=== PATIENT | male | born 1960 | race Caucasian/White ===

== ENCOUNTER 2018-03-18 15:03 | Emergency (ER) | payer OTHER ==
[2018-03-18 15:12] VITALS: BP 122/59; PULSE 79; BMI 38.6
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
[2018-03-18 17:38] LABS: BASO % 1.1 % (0-2.0); EOS % 0.2 % (0-4.5); HEMATOCRIT 41.9 % (35.4-49); HEMOGLOBIN 14.5 GM/dL (11.7-16.9); LYMPH % 11.5 % (8-40); MCH 35.4 pg (25.7-33.7); MCHC 34.7 g/dl (32.0-35.9); MEAN CELL VOLUME 102.1 fl (80-96); MEAN PLT VOLUME 8.6 fl (7.5-11.1); NEUT % 68.2 % (42.8-82.8); PLATELET COUNT 184 K/MM3 (134-434); RDW 14.6 % (11.9-15.9); WHITE BLOOD COUNT 9.5 K/mm3 (4.0-10.0)
[2018-03-18 17:54] LABS: ALBUMIN 3.2 g/dl (3.4-5.0); ANION GAP 5 (8-16); BLOOD UREA NITROGEN 23 mg/dL (7-18); CALCIUM 8.3 mg/dL (8.5-10.1); CHLORIDE 100 mmol/L (98-107); CO2 28 mmol/L (21-32); GLUCOSE,RANDOM 90 mg/dL (74-106); POTASSIUM 4.6 mmol/L (3.5-5.1); SGPT/ALT 18 U/L (12-78); SODIUM 133 mmol/L (136-145)
[2018-03-18 17:57] LABS: ALK PHOS 171 U/L (45-117); BILIRUBIN,TOTAL < 0.1 mg/dL (0.2-1.0); CREATININE 1.5 mg/dL (0.7-1.3); SGOT/AST 20 U/L (15-37); TOT PROT 8.6 g/dl (6.4-8.2)
[2018-03-18 18:03] LABS: URINE APPEARANCE TURBID; URINE BILIRUBIN NEGATIVE (<2.0 mg/dL); URINE BLOOD 2+ (NEGATIVE); URINE COLOR YELLOW; URINE GLUCOSE (UA) NEGATIVE (NEGATIVE); URINE KETONE NEGATIVE (NEGATIVE); URINE NITRITE NEGATIVE (NEGATIVE); URINE UROBILINOGEN NEGATIVE mg/dL (0.2-1.0)
[2018-03-18 18:04] LABS: URINE LEUK ESTERASE 2+ (NEGATIVE); URINE PROTEIN 2+ (NEGATIVE)
[2018-03-18 18:07] LABS: URINE HYALINE CAST 1 /lpf; URINE MUCUS RARE
[2018-03-18] MEDS ORDERED: CEFTRIAXONE 1 GM in DEXTROSE 5%-WATER - 100 ML IVPB ONE (18:23)
[2018-03-18] MEDS ORDERED: CEFTRIAXONE 1 GM/50 ML BAG ONE (18:40)
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
[2018-03-18] MEDS ORDERED: INSULIN REGULAR HUMAN 100 UNITS/ML *VIAL ONE ×2 (20:29→20:30)
[2018-03-18 20:35] VITALS: TEMP 98.1
== END 2018-03-18 20:58 | disposition home or self-care (01) ==
LOC: JER 15:03
DX: N39.0 Urinary tract infection, site not specified (principal); Q90.9 Down syndrome, unspecified; F78 Other intellectual disabilities; G40.909 Epilepsy, unspecified, not intractable, without status epilepticus
CPT/HCPCS: 36415; 71045-TC-FY; 80053; 81003; 81015; 85025; 87086; 96365; 99282-25

== ENCOUNTER 2018-03-27 13:25 | Inpatient (IN) | payer OTHER ==
--- NOTE | 2018-03-27 13:46 | PDOC ---
History of Present Illness - General History Source: Patient <Nancie Dowd - Last Filed: 03/27/18 17:22> - General History Source: Care Provider, EMS Exam Limitations: No Limitations - History of Present Illness Initial Comments: 03/27/18 17:59 The patient is a 57 year old male with a significant past medical history of Down's syndrome and HLD who was brought in by EMS to the emergency department for evaluation of fever. The staff of the [facility] reports the patient had a T -max of 101. The patient was recently admitted for decreased mental status and energy. The staff reports he was diagnosed for a UTI and had catheter recently removed. As per discharge form, the patient was on Macrobid. The staff reports a decrease in PO intake. As per staff, a growth was noticed on buttocks today, but was not there a few days ago. The patient denies chest pain, shortness of breath, headache, and dizziness. Denies fevers, chills, nausea, vomiting, diarrhea, and constipation. Allergies: NKA Social history: No reported cigarette, alcohol, or drug use. PCP: Dr. Reid Orosco ([phone]) <Roma Bishop - Last Filed: 03/27/18 19:07> - General Stated Complaint: FEVER Time Seen by Provider: 03/27/18 13:32 Past History - Past Medical History COPD: No Seizures: Yes - Suicide/Smoking/Psychosocial Hx Smoking Status: No Smoking History: Never smoked Number of Cigarettes Smoked Daily: 0 <NoemíNancie - Last Filed: 03/27/18 17:22> <Roma Bishop - Last Filed: 03/27/18 19:07> - Past Medical History Allergies/Adverse Reactions: Allergies Allergy/AdvReac Type Severity Reaction Status Date / Time No Known Allergies Allergy Verified 03/18/18 15:08 Home Medications: Ambulatory Orders Acetaminophen 325 mg PO QID PRN 03/27/18 Ascorbic Acid [C-500] 500 mg PO HS 03/27/18 Atorvastatin Ca [Lipitor] 20 mg PO HS 03/27/18 Calcium Carbonate/Vitamin D3 [Oyster Shell 500-Vit D3 200 Tb] 1 each PO BID Cyclobenzaprine HCl 5 mg PO HS 03/27/18 Dutasteride 0.5 mg PO 03/27/18 Emollient Combination No.71 [Lubriderm Advanced Therapy] 1 TP BID 03/27/18 Ketoconazole 2% Cream [Nizoral 2% Cream -] 1 applic TP BID 03/27/18 Mineral Oil 2 drop AU HS 03/27/18 Phenytoin Na Extended [Dilantin -] 30 mg PO BID 03/27/18 Phenytoin Na Extended [Dilantin -] 100 mg PO TID 03/27/18 Phisoderm 03/27/18 Tamsulosin HCl [Flomax] 0.4 mg PO BID 03/27/18 Tamsulosin HCl [Flomax] 0.4 mg PO HS 03/27/18 Tetrahydrozoline HCl [Visine] 2 drop OS BID 03/27/18 Tussin Liquid 10 ml PO Q6H PRN 03/27/18 Review of Systems - Review of Systems Able to Perform ROS?: Yes Comments:: GENERAL/CONSTITUTIONAL: (+)Fever. No chills. No weakness. HEAD, EYES, EARS, NOSE AND THROAT: No change in vision. No ear pain or discharge. No sore throat. CARDIOVASCULAR: No chest pain or shortness of breath. RESPIRATORY: No cough, wheezing, or hemoptysis. GASTROINTESTINAL: No nausea, vomiting, diarrhea or constipation. GENITOURINARY: No dysuria, frequency, or change in urination. MUSCULOSKELETAL: No joint or muscle swelling or pain. No neck or back pain. SKIN: No rash NEUROLOGIC: No headache, vertigo, loss of consciousness, or change in strength/ sensation. ENDOCRINE: No increased thirst. No abnormal weight change. HEMATOLOGIC/LYMPHATIC: No anemia, easy bleeding, or history of blood clots. ALLERGIC/IMMUNOLOGIC: No hives or skin allergy. <Roma Bishop - Last Filed: 03/27/18 19:07> *Physical Exam - Vital Signs Last Vital Signs Temp Pulse Resp BP Pulse Ox 100.8 F H 93 H 20 102/67 94 L 03/27/18 13:25 03/27/18 13:25 03/27/18 13:25 03/27/18 13:25 03/27/18 13:25 <Roma Bishop - Last Filed: 03/27/18 19:07> Heart Score/ECG Review #1 General ECG Interpretation: Sinus Rhythm, Normal Rate (92), Normal Intervals, No acute ischemic changes <LisamirellaNancie - Last Filed: 03/27/18 17:22> ED Treatment Course - LABORATORY CBC & Chemistry Diagram: 03/27/18 14:15 03/27/18 14:16 <Nancie Dowd - Last Filed: 03/27/18 17:22> - LABORATORY CBC & Chemistry Diagram: 03/27/18 14:15 03/27/18 14:16 - ADDITIONAL ORDERS Additional order review: Laboratory Results 03/27/18 03/27/18 03/27/18 16:00 14:16 14:15 Sodium 135 L Potassium 4.1 Chloride 101 Carbon Dioxide 28 Anion Gap 6 L BUN 22 H Creatinine 1.3 Creat Clearance w eGFR 56.90 Random Glucose 123 H Lactic Acid 1.2 Calcium 8.2 L Total Bilirubin 0.6 AST 26 ALT 18 Alkaline Phosphatase 94 H Total Protein 7.1 Albumin 2.4 L Urine Color Yellow Urine Appearance Clear Urine pH 5.5 Ur Specific [place] 1.015 Urine Protein 1+ H Urine Glucose (UA) Negative Urine Ketones Trace Urine Blood 2+ H Urine Nitrite Negative Urine Bilirubin Negative Urine Urobilinogen 0.2 Ur Leukocyte Esterase Trace H 03/27/18 14:15 RBC 3.84 L MCV 101.4 H MCHC 33.5 RDW 12.9 MPV 8.5 Neutrophils % 73.7 Lymphocytes % 11.9 Monocytes % 13.9 H Eosinophils % 0.0 Basophils % 0.5 - Medications Given in the ED: ED Medications Discontinued Medications Generic Name Dose Route Start Last Admin Trade Name Freq PRN Reason Stop Dose Admin Acetaminophen 1,000 mg 03/27/18 14:43 03/27/18 15:03 Ofirmev Injection - IVPB 03/27/18 14:44 1,000 mg ONCE ONE Administration Ceftriaxone Sodium 1,000 mg/ 50 mls @ 100 mls/hr 03/27/18 15:09 03/27/18 16: 10 Dextrose IVPB 03/27/18 15:38 100 mls/hr ONCE ONE Administration Sodium Chloride 1,000 ml 03/27/18 14:43 03/27/18 15:00 Normal Saline - IV 03/27/18 14:44 1,000 ml ONCE ONE Administration <Roma Bishop - Last Filed: 03/27/18 19:07> Medical Decision Making - Medical Decision Making 03/27/18 13:44 recent uti with fever, differential includes sepsis, bctermia. recurrent uti or pyelo plan las ivf, cultures ua. cxr will likley require admission. <Nancie Dowd - Last Filed: 03/27/18 17:22> - Medical Decision Making Consulted with Dr. Nails at 18:35. <Roma Bishop - Last Filed: 03/27/18 19:07> *DC/Admit/Observation/Transfer - Discharge Dispostion Admit: Yes <Nancie Dowd - Last Filed: 03/27/18 17:22> - Attestations Scribe Attestion: Documentation prepared by Roma Bishop, acting as medical art therapist for Nancie Dowd MD. <Roma Bishop - Last Filed: 03/27/18 19:07> Diagnosis at time of Disposition: Sepsis, UTI (urinary tract infection) - Discharge Dispostion Condition at time of disposition: Stable
[2018-03-27] MEDS ORDERED: SODIUM CHLORIDE 0.9% 1000 ML INFUS.BAG IV ONE (14:43)
[2018-03-27] MEDS ORDERED: ACETAMINOPHEN 1000 MG/100 ML VIAL (NON FORMULARY) IVPB ONE (14:43)
[2018-03-27] MEDS ORDERED: ACETAMINOPHEN INJECTION 100 ML IVPB ONE (14:57)
[2018-03-27 15:05] LABS: ALBUMIN 2.4 g/dl (3.5-5.0); ALK PHOS 94 U/L (32-92); ANION GAP 6 (8-16); BLOOD UREA NITROGEN 22 mg/dl (7-18); CALCIUM 8.2 mg/dl (8.4-10.2); CHLORIDE 101 mmol/L (98-107); CO2 28 mmol/L (22-28); CREATININE 1.3 mg/dl (0.6-1.3); GLUCOSE,RANDOM 123 mg/dl (74-106); POTASSIUM 4.1 mmol/L (3.5-5.1); SGOT/AST 26 U/L (10-42); SGPT/ALT 18 U/L (10-40); SODIUM 135 mmol/L (136-145); TOT PROT 7.1 g/dl (6.4-8.3)
[2018-03-27] MEDS ORDERED: CEFTRIAXONE 1,000 MG in DEXTROSE 5%-WATER - 50 ML IVPB ONE (15:09)
[2018-03-27 15:15] LABS: BASO % 0.5 % (0-2.0); PLATELET COUNT 171 K/MM3 (134-434)
[2018-03-27] MEDS ORDERED: cefTRIAXone SODIUM 1 GM VIAL ONE (15:20)
[2018-03-27 15:32] LABS: HEMOGLOBIN 13.1 GM/dl (11.7-16.9); LYMPH % 11.9 % (8-40); MCHC 33.5 g/dl (32.0-35.9); MEAN CELL VOLUME 101.4 fl (80-96); MEAN PLT VOLUME 8.5 fl (7.5-11.1); MONO % 13.9 % (3.8-10.2); NEUT % 73.7 % (42.8-82.8); RBC 3.84 M/mm3 (4.00-5.60); RDW 12.9 % (11.9-15.9); WHITE BLOOD COUNT 9.6 K/mm3 (4.0-10.8)
[2018-03-27 15:38] LABS: BILIRUBIN,TOTAL 0.6 mg/dl (0.2-1.0)
[2018-03-27 16:15] LABS: PH,URINE 5.5 (4.5-8); URINE APPEARANCE Clear; URINE BILIRUBIN Negative (NEGATIVE); URINE COLOR YELLOW; URINE GLUCOSE (UA) Negative (NEGATIVE); URINE KETONE Trace (NEGATIVE); URINE LEUK ESTERASE TRACE (NEGATIVE); URINE NITRITE Negative (NEGATIVE); URINE PROTEIN 1+ (NEGATIVE); URINE UROBILINOGEN 0.2 (0.2-1.0)
[2018-03-27 19:15] LABS: URINE BACTERIA MODERATE /hpf (NEGATIVE); URINE RBC 15-25 /hpf (0-3); URINE WBC 20-30 (0-2)
[2018-03-27] MEDS ORDERED: VANCOMYCIN 1 GRAM (PRE-DOCKED) 1,000 MG/250 ML BAG IVPB ONE (19:16)
[2018-03-27] MEDS: SODIUM CHLORIDE 1,000 ML IV SCH (19:48)
--- NOTE | 2018-03-27 21:28 | HP ---
CHIEF COMPLAINT:decline on status, +uti PCP: Dr. Elizabeth Orosco HISTORY OF PRESENT ILLNESS: This 57 yr old male with Down's Syndrome comes from a home with [facility] who tells us that Waqar has a decline on status a month ago; found to have UTI, urinary retention with need for a hickman now removed, completed macrobid. Over the week at home, he has declined on his abiltiy to ambulate, speak and hand dexterity as well as showing a UTI once again. He had a fever of 101 yesterday. ER course was notable for: (1) finding of UTI on vanco (2) (3) PAST MEDICAL HISTORY: Down's syndrome, uti PAST SURGICAL HISTORY: Social History: none Smoking: Alcohol: Drugs: Family History: Allergies No Known Allergies Allergy (Verified 03/18/18 15:08) HOME MEDICATIONS: Home Medications Medication Instructions Recorded Acetaminophen 325 mg PO QID PRN 03/27/18 Ascorbic Acid [C-500] 500 mg PO HS 03/27/18 Atorvastatin Ca [Lipitor] 20 mg PO HS 03/27/18 Calcium Carbonate/Vitamin D3 1 each PO BID 03/27/18 [Oyster Shell 500-Vit D3 200 Tb] Cyclobenzaprine HCl 5 mg PO HS 03/27/18 Dutasteride 0.5 mg PO HS 03/27/18 Emollient Combination No.71 1 TP BID 03/27/18 [Lubriderm Advanced Therapy] Ketoconazole 2% Cream [Nizoral 2% 1 applic TP BID 03/27/18 Cream -] Mineral Oil 2 drop AU HS 03/27/18 Phenytoin Na Extended [Dilantin -] 30 mg PO BID 03/27/18 Phenytoin Na Extended [Dilantin -] 100 mg PO TID 03/27/18 Phisoderm 03/27/18 Tamsulosin HCl [Flomax] 0.4 mg PO BID 03/27/18 Tamsulosin HCl [Flomax] 0.4 mg PO HS 03/27/18 Tetrahydrozoline HCl [Visine] 2 drop OS BID 03/27/18 Tussin Liquid 10 ml PO Q6H PRN 03/27/18 REVIEW OF SYSTEMS Unable to retrieve accept what the [facility] at bedside can provide PHYSICAL EXAMINATION Vital Signs - 24 hr 04/26/18 04/26/18 04/26/18 13:25 18:00 18:13 Temperature 100.8 F H 99.6 F 99.4 F Pulse Rate 93 H 81 Pulse Rate [ 88 Left Apical] Respiratory 20 16 16 Rate Blood Pressure 102/67 128/74 Blood Pressure 129/70 [Right Arm] O2 Sat by Pulse 94 L 95 Oximetry (%) 03/27/18 03/27/18 19:19 20:14 Temperature Pulse Rate Pulse Rate [ Left Apical] Respiratory 16 16 Rate Blood Pressure Blood Pressure [Right Arm] O2 Sat by Pulse 95 95 Oximetry (%) GENERAL: Awake, alert, minimal speech HEAD: Normal with no signs of trauma. LUNGS: Breath sounds equal, clear to auscultation bilaterally. HEART: Regular rate and rhythm, normal S1 and S2 without murmur, rub or gallop. ABDOMEN: Soft, nontender, not distended, MUSCULOSKELETAL: difficulty to assess in bed needs PT UPPER EXTREMITIES: 2+ pulses, warm, well-perfused. No cyanosis. LOWER EXTREMITIES: 2+ pulses, warm, well-perfused. NEUROLOGICAL: Down's syndrome PSYCHIATRIC: Cooperative. Good eye contact. Appropriate mood and affect. SKIN: Warm, dry, normal turgor, no rashes or lesions noted, normal capillary refill. Laboratory Results - last 24 hr 03/27/18 03/27/18 03/27/18 14:15 14:15 14:16 WBC 9.6 RBC 3.84 L Hgb 13.1 Hct 39.0 MCV 101.4 H MCH 34.0 H MCHC 33.5 RDW 12.9 Plt Count 171 MPV 8.5 Neutrophils % 73.7 Lymphocytes % 11.9 Monocytes % 13.9 H Eosinophils % 0.0 Basophils % 0.5 Sodium 135 L Potassium 4.1 Chloride 101 Carbon Dioxide 28 Anion Gap 6 L BUN 22 H Creatinine 1.3 Creat Clearance w eGFR 56.90 Random Glucose 123 H Lactic Acid 1.2 Calcium 8.2 L Total Bilirubin 0.6 AST 26 ALT 18 Alkaline Phosphatase 94 H Total Protein 7.1 Albumin 2.4 L Urine Color Urine Appearance Urine pH Ur Specific [place] Urine Protein Urine Glucose (UA) Urine Ketones Urine Blood Urine Nitrite Urine Bilirubin Urine Urobilinogen Ur Leukocyte Esterase Urine RBC Urine WBC Urine Bacteria 03/27/18 16:00 WBC RBC Hgb Hct MCV MCH MCHC RDW Plt Count MPV Neutrophils % Lymphocytes % Monocytes % Eosinophils % Basophils % Sodium Potassium Chloride Carbon Dioxide Anion Gap BUN Creatinine Creat Clearance w eGFR Random Glucose Lactic Acid Calcium Total Bilirubin AST ALT Alkaline Phosphatase Total Protein Albumin Urine Color Yellow Urine Appearance Clear Urine pH 5.5 Ur Specific [place] 1.015 Urine Protein 1+ H Urine Glucose (UA) Negative Urine Ketones Trace Urine Blood 2+ H Urine Nitrite Negative Urine Bilirubin Negative Urine Urobilinogen 0.2 Ur Leukocyte Esterase Trace H Urine RBC 15-25 Urine WBC 20-30 Urine Bacteria Moderate ASSESSMENT/PLAN: This 57 yr old Down's Syndrome male with +UTI, neuro decline with mobility and speech. Problem List - Problem (1) Altered mental status, unspecified Assessment/Plan: -difficulty to state any difference from intitial meeting, however staff present during interview and upset pt recent decline over the week. -head ct for AM -PT -needs encouragement for ADL's Code(s): R41.82 - ALTERED MENTAL STATUS, UNSPECIFIED (2) Sepsis Assessment/Plan: -cultures pending -ID consult ordered. -ABT started Code(s): A41.9 - SEPSIS, UNSPECIFIED ORGANISM (3) UTI (urinary tract infection) Assessment/Plan: -I/O -ABT continue -pending urine culture -fever with tylenol PRN Code(s): N39.0 - URINARY TRACT INFECTION, SITE NOT SPECIFIED Visit type - Emergency Visit Emergency Visit: Yes ED Registration Date: 03/27/18 Care time: The patient presented to the Emergency Department on the above date and was hospitalized for further evaluation of their emergent condition. - New Patient This patient is new to me today: Yes Date on this admission: 03/27/18 - Critical Care Critical Care patient: No Hospitalist Screening - Colonoscopy Questionnaire Colonoscopy Questionnaire: Colonoscopy Questionnaire - Patient: 50 - 75 years old and never had a screening colonoscopy: Unknown History of colon or rectal polyps, or CA: Unknown History of IBD, Crohn's disease or UC: Unknown History of abdominal radiation therapy as a child: Unknown - Relative: 1 with colon or rectal CA, or polyps at age 60 or younger: Unknown Colon or rectal CA diagnosed at age 45 or younger: Unknown Multiple relatives with colon or rectal CA: Unknown - Outcome: Screening Result: Negative Screen
[2018-03-27] MEDS: HEPARIN NA (PORCINE) 5,000 UNITS/ML 1ML VIAL SQ SCH (21:32)
[2018-03-27] MEDS: DUTASTERIDE 0.5 MG CAP (FP) PO SCH (21:32)
[2018-03-27] MEDS: CALCIUM 500MG/VIT-D 200 UNITS COMBO TABLET (FP) PO SCH (21:32)
[2018-03-27] MEDS: ATORVASTATIN CA 20 MG TABLET (FP) PO SCH (21:32)
[2018-03-27] MEDS ORDERED: TAMSULOSIN HCL 0.4 MG CAP.ER.24H (FP) PO SCH (22:00)
[2018-03-27] MEDS ORDERED: CYCLOBENZAPRINE HCL 5 MG TABLET PO SCH (22:00)
[2018-03-27] MEDS: CYCLOBENZAPRINE HCL 10 MG TABLET (FP) PO SCH (22:24)
[2018-03-27] MEDS: TETRAHYDROZOLINE HCL EYE DROPS OS SCH (22:29)
[2018-03-28] MEDS: HEPARIN NA (PORCINE) 5,000 UNITS/ML 1ML VIAL SQ SCH ×3 (05:09→22:08)
--- NOTE | 2018-03-28 08:55 | PN ---
Progress Note (short form) - Note Progress Note: ID consult dictated imp/reccd 57 year old man PMH Down's Syndrome and seizure disorder [facility] from [facility], recently seen in ED on 03/18 for weakness- had been on bactrim for UTI meds switch to nitrofurantoin and discharged now returns to ED last night with fever 101 at the residence. cultures taken and started on rocephin apparently had recent hickman catheter at the facility noted to have stage 2 sacral/left buttock ulcer as well urine with pyuria cultures sent and started on rocephin fever UTI failure to thrive suggest cultures bladder/renal sonogram continue ceftriaxone esr/crp psa Problem List - Problems (1) Fever Code(s): R50.9 - FEVER, UNSPECIFIED (2) UTI (urinary tract infection) Code(s): N39.0 - URINARY TRACT INFECTION, SITE NOT SPECIFIED
[2018-03-28] MEDS ORDERED: TUSSIN PO PRN (08:56)
[2018-03-28] MEDS ORDERED: guaiFENesin 200 MG/10 ML 10 ML UNIT-DOSE CUPS PO PRN (09:06)
--- NOTE | 2018-03-28 09:55 | CONS ---
DATE OF CONSULTATION: DATE OF DICTATION: 03/28/2018 REQUESTING PHYSICIAN: The hospitalist service. HISTORY OF PRESENT ILLNESS: This is a 57-year-old man with a history of mental retardation. He lives in a [facility]. He originally presented March 18 to the emergency room because of generalized weakness. The staff reported that he had been declining as an outpatient. At that time, he had recently had a catheter in place for UTI and was on Macrobid. In the emergency room, he was noted to have persistent pyuria. He had been on Bactrim, was switched to Macrobid, and he was discharged. He returned from the with fever of 101 at the [facility]. He again was noted to have pyuria and a small stage 2 sacral and left buttock ulcer. Patient was apparently lethargic yesterday. This morning, he is awake and alert and eating his breakfast. He has no complaints. PAST MEDICAL HISTORY: His history is limited by his mental status. His past medical history is notable for history of Down syndrome. He has hyperlipidemia. He has had recent UTI. He has a seizure disorder. SURGICAL HISTORY: He has had some sort of surgery on his left hip; the nature of this is not known. ALLERGIES: He has no known drug allergies. MEDICATIONS: As an outpatient include cyclobenzaprine, calcium/vitamin D, atorvastatin, phenytoin, tamsulosin, and dutasteride. SOCIAL HISTORY: Except for the fact that he resides at the [facility], is not available. REVIEW OF SYSTEMS: Is limited. PHYSICAL EXAMINATION Vital signs: He is afebrile this morning, maximum temperature was 100.8, pulse 63, blood pressure 113/68, respiratory rate 19, he is saturating 95% on room air. General: He is a very pleasant man in no acute distress. HEENT: He is normocephalic. He has no thrush or pharyngitis. Neck: Supple. Lungs: Clear to auscultation. Heart: Regular rate and rhythm. Abdomen: Soft, nontender. He has no suprapubic or CVA tenderness. He has no testicular swelling. He has a small stage 2 ulcer on his sacrum and left buttock. He has an incision on his left upper thigh on the outer aspect consistent with possibly a hip replacement or femoral fracture. Extremities: Without edema. DIAGNOSTIC DATA: His chest x-ray has no acute pathology. His labs are notable for a white count of 9.6, hemoglobin 13.1, platelets of 171. INR is 1. BUN 22, creatinine 1.3. His LFTs are notable for an alkaline phosphatase of 94. Urinalysis, he has trace leukocyte esterase with 20-30 white cells. SUMMARY: This is a 57-year-old man admitted with fever with a history of recent recurrent urinary tract infection from the [facility]. He now has new fever, possible urinary tract infection with failure to thrive. Given the fact that he has had catheters in the past, would suggest that we obtain a bladder renal sonogram to rule out obstruction, continue ceftriaxone as ordered, follow up his cultures, and would check his sedimentation rate, CRP, and PSA. Further recommendations to follow. Case was discussed with the hospitalist. BEBO SPARKS M.D. [id number]
[2018-03-28] MEDS ORDERED: CEFTRIAXONE 1 G/50 ML PREMIX 50 ML IVPB SCH (10:00)
--- NOTE | 2018-03-28 10:02 | EKG ---
Test Reason : Blood Pressure : / mmHG Vent. Rate : 092 BPM Atrial Rate : 092 BPM P-R Int : 156 ms QRS Dur : 090 ms QT Int : 360 ms P-R-T Axes : 062 039 043 degrees QTc Int : 445 ms NORMAL SINUS RHYTHM NORMAL ECG WHEN COMPARED WITH ECG OF 17-JUL-2017 17:44, NO SIGNIFICANT CHANGE WAS FOUND Confirmed by STEPHON FERGUSON MD ([id number]) on 03/28/2018 10:02:08 AM Referred By: JOANN BHATIA Confirmed By:STEPHON FERGSUON MD
[2018-03-28] MEDS ORDERED: PT OWN MED DRAWER 7, Y5N ONE ×2 (10:40→22:06)
[2018-03-28] MEDS: TAMSULOSIN HCL 0.4 MG CAP.ER.24H (FP) PO SCH ×2 (10:56→18:21)
[2018-03-28] MEDS: PHENYTOIN NA EXTENDED 100 MG CAPSULE (FP) PO SCH ×2 (10:56→22:09)
[2018-03-28] MEDS: KETOCONAZOLE 2% CREAM - 60GM TUBE TP SCH ×2 (10:59→22:08)
[2018-03-28] MEDS: TETRAHYDROZOLINE HCL EYE DROPS OS SCH ×2 (11:00→22:10)
[2018-03-28] MEDS: CALCIUM 500MG/VIT-D 200 UNITS COMBO TABLET (FP) PO SCH ×2 (11:01→20:38)
[2018-03-28] MEDS ORDERED: PHENYTOIN NA PO SCH (11:30)
[2018-03-28] MEDS: PHENYTOIN NA PO SCH ×2 (12:18→22:10)
[2018-03-28 13:31] LABS: EOS % 0.2 % (0-4.5); HEMOGLOBIN 12.1 GM/dl (11.7-16.9); LYMPH % 11.5 % (8-40); MCHC 34.5 g/dl (32.0-35.9); MEAN CELL VOLUME 101.6 fl (80-96); MEAN PLT VOLUME 8.3 fl (7.5-11.1); MONO % 16.6 % (3.8-10.2); PLATELET COUNT 159 K/MM3 (134-434); RBC 3.45 M/mm3 (4.00-5.60); WHITE BLOOD COUNT 8.3 K/mm3 (4.0-10.8)
[2018-03-28 13:41] LABS: ALBUMIN 2.1 g/dl (3.5-5.0); ALK PHOS 85 U/L (32-92); ANION GAP 7 (8-16); BLOOD UREA NITROGEN 19 mg/dl (7-18); CALCIUM 7.6 mg/dl (8.4-10.2); CHLORIDE 102 mmol/L (98-107); CO2 25 mmol/L (22-28); CREATININE 1.1 mg/dl (0.6-1.3); GLUCOSE,RANDOM 127 mg/dl (74-106); MAGNESIUM 1.6 mg/dL (1.8-2.4); PHOSPHOROUS 2.6 mg/dl (2.5-4.6); POTASSIUM 3.7 mmol/L (3.5-5.1); SGOT/AST 34 U/L (10-42); SGPT/ALT 22 U/L (10-40); SODIUM 134 mmol/L (136-145); TOT PROT 6.3 g/dl (6.4-8.3)
[2018-03-28 13:44] LABS: BILIRUBIN,TOTAL 0.5 mg/dl (0.2-1.0)
[2018-03-28] MEDS: ACETAMINOPHEN 325 MG TABLET (FP) PO PRN (13:52)
[2018-03-28] MEDS: SODIUM CHLORIDE 1,000 ML IV SCH (18:21)
[2018-03-28] MEDS ORDERED: D5-1/2NS+20 MEQ KCL - 20 MEQ/1,000 ML INFUS.BAG IV SCH (18:30)
--- NOTE | 2018-03-28 18:30 | PN ---
Progress Note, Physician History of Present Illness: pt seen/ examined. chart reviewed awake./ lethargic poor historian. - Current Medication List Current Medications: Active Medications Acetaminophen (Tylenol -) 650 mg PO Q4H PRN PRN Reason: PAIN LEVEL 1-5 Last Admin: 03/28/18 13:52 Dose: 650 mg Ascorbic Acid (Vitamin C -) 500 mg PO HS [facility] Atorvastatin Calcium (Lipitor -) 20 mg PO HS [facility] Last Admin: 03/27/18 21:32 Dose: 20 mg Calcium Carbonate/Cholecalciferol (Os-Cesar 500+D -) 1 tab PO BID@0800,2000 [facility] Cyclobenzaprine HCl (Flexeril -) 5 mg PO HS [facility] Last Admin: 03/27/18 22:24 Dose: 5 mg Dutasteride (Avodart -) 0.5 mg PO HS [facility] Last Admin: 03/27/18 21:32 Dose: 0.5 mg Guaifenesin (Robitussin -) 10 ml PO Q6H PRN PRN Reason: COUGH Heparin Sodium (Porcine) (Heparin -) 5,000 unit SQ TID [facility] Last Admin: 03/28/18 14:54 Dose: 5,000 unit Sodium Chloride (Normal Saline -) 1,000 mls @ 83 mls/hr IV ASDIR [facility] Last Admin: 03/28/18 18:21 Dose: 83 mls/hr Potassium Chloride/Dextrose/Sod Cl (D5-1/2ns+20 Meq Kcl -) 20 meq in 1,000 mls @ 125 mls/hr IV ASDIR [facility] Ketoconazole (Nizoral 2% Cream -) 1 applic TP BID [facility] Last Admin: 03/28/18 10:59 Dose: 1 applic Phenytoin Sodium (Dilantin -) 100 mg PO TID [facility] Last Admin: 03/28/18 10:56 Dose: 100 mg Phenytoin Sodium (Dilantin -) 30 mg PO BID [facility] Last Admin: 03/28/18 12:18 Dose: 30 mg Tamsulosin HCl (Flomax -) 0.4 mg PO BID@0830,1830 [facility] Last Admin: 03/28/18 18:21 Dose: 0.4 mg Tetrahydrozoline HCl (Visine -) 2 drop OS BID [facility] Last Admin: 03/28/18 11:00 Dose: 2 drop - Objective Vital Signs: Vital Signs Temperature 100.1 F H 04/27/18 14:12 Pulse Rate 89 03/28/18 14:12 Respiratory Rate 20 03/28/18 14:12 Blood Pressure 121/68 03/28/18 14:12 O2 Sat by Pulse Oximetry (%) 95 03/28/18 09:00 Constitutional: Yes: No Distress Neck: Yes: Supple Cardiovascular: Yes: Regular Rate and Rhythm Respiratory: Yes: CTA Bilaterally Gastrointestinal: Yes: Soft Edema: No Wound/Incision: Yes: Other (sacral/ left buttock decubitus) Labs: CBC, BMP 03/28/18 13:05 03/28/18 13:05 - ....Imaging Chest X-ray: Report Reviewed Problem List - Problems (1) Altered mental status, unspecified Code(s): R41.82 - ALTERED MENTAL STATUS, UNSPECIFIED (2) Fever Code(s): R50.9 - FEVER, UNSPECIFIED (3) Sepsis Code(s): A41.9 - SEPSIS, UNSPECIFIED ORGANISM (4) UTI (urinary tract infection) Code(s): N39.0 - URINARY TRACT INFECTION, SITE NOT SPECIFIED Assessment/Plan Abx fluids Not eating well. change to d5 f/u labs decubitus care will follow discussed with nursing staff
[2018-03-28] MEDS: ASCORBIC ACID 500 MG TABLET (FP) PO SCH (22:09)
[2018-03-28] MEDS: CYCLOBENZAPRINE HCL 10 MG TABLET (FP) PO SCH (22:09)
[2018-03-28] MEDS: DUTASTERIDE 0.5 MG CAP (FP) PO SCH (22:09)
[2018-03-28] MEDS: ATORVASTATIN CA 20 MG TABLET (FP) PO SCH (22:09)
[2018-03-29] MEDS: HEPARIN NA (PORCINE) 5,000 UNITS/ML 1ML VIAL SQ SCH ×3 (06:27→21:46)
[2018-03-29] MEDS: PHENYTOIN NA EXTENDED 100 MG CAPSULE (FP) PO SCH ×3 (06:27→21:45)
[2018-03-29 08:17] LABS: BASO % 0.8 % (0-2.0); EOS % 0.3 % (0-4.5); HEMATOCRIT 34.3 % (35.4-49); HEMOGLOBIN 11.7 GM/dl (11.7-16.9); LYMPH % 11.9 % (8-40); MCH 34.6 pg (25.7-33.7); MCHC 34.1 g/dl (32.0-35.9); MEAN CELL VOLUME 101.5 fl (80-96); MEAN PLT VOLUME 7.4 fl (7.5-11.1); MONO % 16.2 % (3.8-10.2); NEUT % 70.8 % (42.8-82.8); PLATELET COUNT 174 K/MM3 (134-434); RBC 3.38 M/mm3 (4.00-5.60); WHITE BLOOD COUNT 7.6 K/mm3 (4.0-10.8)
--- NOTE | 2018-03-29 08:49 | PN ---
Progress Note, Physician History of Present Illness: Awake, responsive No acute distress + febrile overnight Blood c/s no growth Urine c/s pending - Current Medication List Current Medications: Active Medications Acetaminophen (Tylenol -) 650 mg PO Q4H PRN PRN Reason: PAIN LEVEL 1-5 Last Admin: 03/28/18 13:52 Dose: 650 mg Ascorbic Acid (Vitamin C -) 500 mg PO [facility] Last Admin: 03/28/18 22:09 Dose: 500 mg Atorvastatin Calcium (Lipitor -) 20 mg PO HS [facility] Last Admin: 03/28/18 22:09 Dose: 20 mg Calcium Carbonate/Cholecalciferol (Os-Cesar 500+D -) 1 tab PO BID@0800,2000 [facility] Last Admin: 03/28/18 20:38 Dose: 1 tab Cyclobenzaprine HCl (Flexeril -) 5 mg PO [facility] Last Admin: 03/28/18 22:09 Dose: 5 mg Dutasteride (Avodart -) 0.5 mg PO [facility] Last Admin: 03/28/18 22:09 Dose: 0.5 mg Guaifenesin (Robitussin -) 10 ml PO Q6H PRN PRN Reason: COUGH Heparin Sodium (Porcine) (Heparin -) 5,000 unit SQ TID [facility] Last Admin: 03/29/18 06:27 Dose: 5,000 unit Sodium Chloride (Normal Saline -) 1,000 mls @ 83 mls/hr IV ASDIR [facility] Last Admin: 03/28/18 18:21 Dose: 83 mls/hr Potassium Chloride/Dextrose/Sod Cl (D5-1/2ns+20 Meq Kcl -) 20 meq in 1,000 mls @ 125 mls/hr IV ASDIR [facility] Ceftriaxone Sodium (Ceftriaxone 2 Gm-D5w Bag) 2 gm in 50 mls @ 100 mls/hr IVPB DAILY [facility] Ketoconazole (Nizoral 2% Cream -) 1 applic TP BID [facility] Last Admin: 03/28/18 22:08 Dose: 1 applic Phenytoin Sodium (Dilantin -) 100 mg PO TID [facility] Last Admin: 03/29/18 06:27 Dose: 100 mg Phenytoin Sodium (Dilantin -) 30 mg PO BID [facility] Last Admin: 03/28/18 22:10 Dose: 30 mg Tamsulosin HCl (Flomax -) 0.4 mg PO BID@0830,1830 [facility] Last Admin: 03/28/18 18:21 Dose: 0.4 mg Tetrahydrozoline HCl (Visine -) 2 drop OS BID [facility] Last Admin: 03/28/18 22:10 Dose: 2 drop - Objective Vital Signs: Vital Signs Temperature 98.8 F 03/29/18 06:00 Pulse Rate 82 03/29/18 06:00 Respiratory Rate 18 03/29/18 06:00 Blood Pressure 121/80 03/29/18 06:00 O2 Sat by Pulse Oximetry (%) 97 03/29/18 06:00 Constitutional: Yes: No Distress Eyes: Yes: Conjunctiva Clear Cardiovascular: Yes: Regular Rate and Rhythm, S1, S2 Respiratory: Yes: Diminished Gastrointestinal: Yes: Normal Bowel Sounds, Soft, Other (+ distended, non tender ) Edema: No Labs: CBC, BMP 03/29/18 08:05 Assessment/Plan Fever ? sepsis secondary to source Down's syndrome Await c/s Continue empiric ceftriaxone
[2018-03-29] MEDS: TAMSULOSIN HCL 0.4 MG CAP.ER.24H (FP) PO SCH ×2 (09:00→19:06)
[2018-03-29] MEDS: CALCIUM 500MG/VIT-D 200 UNITS COMBO TABLET (FP) PO SCH ×2 (09:00→21:46)
--- NOTE | 2018-03-29 09:42 | PN ---
Progress Note (short form) - Note Progress Note: pt looks slightly better but weak poor historian still not eating well Vital Signs Temp 98.8 F 03/29/18 06:00 Pulse 82 03/29/18 06:00 Resp 18 03/29/18 06:00 BP 121/80 03/29/18 06:00 Pulse Ox 97 03/29/18 06:00 Intake & Output 03/28/18 03/28/18 03/29/18 11:59 23:59 11:59 Intake Total 150 100 Balance 150 100 Intake: Oral 150 100 Other: Voiding Method Diaper Diaper Diaper # Unmeasured Voids Void 1 1 1 Bowel Movement No Active Medications Acetaminophen (Tylenol -) 650 mg PO Q4H PRN PRN Reason: PAIN LEVEL 1-5 Last Admin: 03/28/18 13:52 Dose: 650 mg Ascorbic Acid (Vitamin C -) 500 mg PO [facility] Last Admin: 03/28/18 22:09 Dose: 500 mg Atorvastatin Calcium (Lipitor -) 20 mg PO [facility] Last Admin: 03/28/18 22:09 Dose: 20 mg Calcium Carbonate/Cholecalciferol (Os-Cesar 500+D -) 1 tab PO BID@0800,2000 [facility] Last Admin: 03/28/18 20:38 Dose: 1 tab Cyclobenzaprine HCl (Flexeril -) 5 mg PO [facility] Last Admin: 03/28/18 22:09 Dose: 5 mg Dutasteride (Avodart -) 0.5 mg PO [facility] Last Admin: 03/28/18 22:09 Dose: 0.5 mg Guaifenesin (Robitussin -) 10 ml PO Q6H PRN PRN Reason: COUGH Heparin Sodium (Porcine) (Heparin -) 5,000 unit SQ TID [facility] Last Admin: 03/29/18 06:27 Dose: 5,000 unit Sodium Chloride (Normal Saline -) 1,000 mls @ 83 mls/hr IV ASDIR [facility] Last Admin: 03/28/18 18:21 Dose: 83 mls/hr Potassium Chloride/Dextrose/Sod Cl (D5-1/2ns+20 Meq Kcl -) 20 meq in 1,000 mls @ 125 mls/hr IV ASDIR [facility] Ceftriaxone Sodium (Ceftriaxone 2 Gm-D5w Bag) 2 gm in 50 mls @ 100 mls/hr IVPB DAILY [facility] Ketoconazole (Nizoral 2% Cream -) 1 applic TP BID [facility] Last Admin: 03/28/18 22:08 Dose: 1 applic Phenytoin Sodium (Dilantin -) 100 mg PO TID [facility] Last Admin: 03/29/18 06:27 Dose: 100 mg Phenytoin Sodium (Dilantin -) 30 mg PO BID [facility] Last Admin: 03/28/18 22:10 Dose: 30 mg Tamsulosin HCl (Flomax -) 0.4 mg PO BID@0830,1830 [facility] Last Admin: 03/28/18 18:21 Dose: 0.4 mg Tetrahydrozoline HCl (Visine -) 2 drop OS BID [facility] Last Admin: 03/28/18 22:10 Dose: 2 drop CBC, BMP 03/29/18 08:05 Microbiology 03/27/18 16:00 Urine Culture - Preliminary Urine - Urine Clean Catch Group D Strep Or Entero Coccus 03/27/18 14:16 Blood Culture - Preliminary Blood - Peripheral Venous NO GROWTH OBTAINED AFTER 24 HOURS, INCUBATION TO CONTINUE FOR 4 DAYS. 03/27/18 14:16 Blood Culture - Preliminary Blood - Peripheral Venous NO GROWTH OBTAINED AFTER 24 HOURS, INCUBATION TO CONTINUE FOR 4 DAYS. Physical Constitutional: Yes: No Distress. Awake. Neck: Yes: Supple/ Cardiovascular: Yes: Regular Rate and Rhythm Respiratory: Yes: CTA Bilaterally Gastrointestinal: Yes: Soft/ slightly distended. non tender Edema: No Wound/Incision: Yes: Other (sacral/ left buttock decubitus) Assessment/Plan Slightly better Abx fluids f/u labs check esr decubitus care will follow
[2018-03-29 09:58] LABS: ALBUMIN 2.1 g/dl (3.5-5.0); ALK PHOS 81 U/L (32-92); ANION GAP 6 (8-16); BILIRUBIN,TOTAL 0.6 mg/dl (0.2-1.0); BLOOD UREA NITROGEN 13 mg/dl (7-18); CALCIUM 7.7 mg/dl (8.4-10.2); CHLORIDE 102 mmol/L (98-107); CO2 25 mmol/L (22-28); GLUCOSE,RANDOM 159 mg/dl (74-106); POTASSIUM 3.9 mmol/L (3.5-5.1); SGOT/AST 30 U/L (10-42); SGPT/ALT 23 U/L (10-40); SODIUM 133 mmol/L (136-145); TOT PROT 6.4 g/dl (6.4-8.3)
[2018-03-29] MEDS: CEFTRIAXONE 2 GM-D5W BAG 2 GM/50 ML BAG IVPB SCH (10:30)
[2018-03-29] MEDS ORDERED: PT OWN MED DRAWER 7, Y5N ONE ×2 (10:50→21:42)
[2018-03-29] MEDS: PHENYTOIN NA PO SCH ×2 (10:51→21:46)
[2018-03-29] MEDS: KETOCONAZOLE 2% CREAM - 60GM TUBE TP SCH ×2 (10:53→21:45)
[2018-03-29] MEDS: TETRAHYDROZOLINE HCL EYE DROPS OS SCH ×2 (10:53→21:45)
[2018-03-29] MEDS: CYCLOBENZAPRINE HCL 10 MG TABLET (FP) PO SCH (21:45)
[2018-03-29] MEDS: ATORVASTATIN CA 20 MG TABLET (FP) PO SCH (21:45)
[2018-03-29] MEDS: ASCORBIC ACID 500 MG TABLET (FP) PO SCH (21:45)
[2018-03-29] MEDS: DUTASTERIDE 0.5 MG CAP (FP) PO SCH (21:45)
[2018-03-29] MEDS: ACETAMINOPHEN 325 MG TABLET (FP) PO PRN (22:12)
[2018-03-30] MEDS: PHENYTOIN NA EXTENDED 100 MG CAPSULE (FP) PO SCH ×3 (07:16→21:47)
[2018-03-30] MEDS: HEPARIN NA (PORCINE) 5,000 UNITS/ML 1ML VIAL SQ SCH ×3 (07:17→21:48)
[2018-03-30] MEDS: CALCIUM 500MG/VIT-D 200 UNITS COMBO TABLET (FP) PO SCH ×2 (08:00→21:47)
[2018-03-30] MEDS: TAMSULOSIN HCL 0.4 MG CAP.ER.24H (FP) PO SCH (08:33)
[2018-03-30] MEDS ORDERED: PT OWN MED DRAWER 7, Y5N ONE ×2 (09:44→21:42)
[2018-03-30] MEDS: CEFTRIAXONE 2 GM-D5W BAG 2 GM/50 ML BAG IVPB SCH (10:33)
[2018-03-30] MEDS: PHENYTOIN NA PO SCH ×2 (10:34→21:47)
[2018-03-30] MEDS: TETRAHYDROZOLINE HCL EYE DROPS OS SCH ×2 (10:34→21:48)
[2018-03-30] MEDS: KETOCONAZOLE 2% CREAM - 60GM TUBE TP SCH ×2 (10:34→21:48)
[2018-03-30] MEDS: ACETAMINOPHEN 325 MG TABLET (FP) PO PRN ×2 (15:19→21:47)
[2018-03-30] MEDS: SODIUM CHLORIDE 1,000 ML IV SCH (18:14)
--- NOTE | 2018-03-30 21:29 | PN ---
Progress Note (short form) - Note Progress Note: pt looks and feels better denies pain low grade temp Vital Signs Temp 100.1 F H 03/30/18 14:00 Pulse 80 03/30/18 14:00 Resp 18 03/30/18 14:00 BP 134/71 03/30/18 14:00 Pulse Ox 96 03/30/18 14:00 Intake & Output 03/29/18 03/30/18 03/30/18 23:59 11:59 23:59 Intake Total 1700 1250 1250 Balance 1700 1250 1250 Weight 168 lb Intake: IV 1500 1250 1250 D5-1/2NS+20 MEQ KCL - 20 1500 1250 1250 meq In 1,000 ml @ 125 mls /hr IV [facility] Rx#: [id number] IVPB 100 Oral 100 Other: Voiding Method Diaper Diaper # Unmeasured Voids Void 1 2 3 Bowel Movement Yes # Bowel Movements 2 Height 4 ft 10 in 4 ft 10 in Active Medications Acetaminophen (Tylenol -) 650 mg PO Q4H PRN PRN Reason: PAIN LEVEL 1-5 Last Admin: 03/28/18 13:52 Dose: 650 mg Ascorbic Acid (Vitamin C -) 500 mg PO [facility] Last Admin: 03/28/18 22:09 Dose: 500 mg Atorvastatin Calcium (Lipitor -) 20 mg PO [facility] Last Admin: 03/28/18 22:09 Dose: 20 mg Calcium Carbonate/Cholecalciferol (Os-Cesar 500+D -) 1 tab PO BID@0800,2000 [facility] Last Admin: 03/28/18 20:38 Dose: 1 tab Cyclobenzaprine HCl (Flexeril -) 5 mg PO [facility] Last Admin: 03/28/18 22:09 Dose: 5 mg Dutasteride (Avodart -) 0.5 mg PO [facility] Last Admin: 03/28/18 22:09 Dose: 0.5 mg Guaifenesin (Robitussin -) 10 ml PO Q6H PRN PRN Reason: COUGH Heparin Sodium (Porcine) (Heparin -) 5,000 unit SQ TID [facility] Last Admin: 03/29/18 06:27 Dose: 5,000 unit Sodium Chloride (Normal Saline -) 1,000 mls @ 83 mls/hr IV [facility] Last Admin: 04/27/18 18:21 Dose: 83 mls/hr Potassium Chloride/Dextrose/Sod Cl (D5-1/2ns+20 Meq Kcl -) 20 meq in 1,000 mls @ 125 mls/hr IV [facility] Ceftriaxone Sodium (Ceftriaxone 2 Gm-D5w Bag) 2 gm in 50 mls @ 100 mls/hr IVPB DAILY [facility] Ketoconazole (Nizoral 2% Cream -) 1 applic TP BID [facility] Last Admin: 03/28/18 22:08 Dose: 1 applic Phenytoin Sodium (Dilantin -) 100 mg PO TID [facility] Last Admin: 03/29/18 06:27 Dose: 100 mg Phenytoin Sodium (Dilantin -) 30 mg PO BID [facility] Last Admin: 03/28/18 22:10 Dose: 30 mg Tamsulosin HCl (Flomax -) 0.4 mg PO BID@0830,1830 [facility] Last Admin: 03/28/18 18:21 Dose: 0.4 mg Tetrahydrozoline HCl (Visine -) 2 drop OS BID [facility] Last Admin: 03/28/18 22:10 Dose: 2 drop CBC,CMP WBC 7.6 K/mm3 (4.0-10.8) 03/29/18 08:05 RBC 3.38 M/mm3 (4.00-5.60) L 03/29/18 08:05 Hgb 11.7 GM/dl (11.7-16.9) 03/29/18 08:05 Hct 34.3 % (35.4-49) L 03/29/18 08:05 MCV 101.5 fl (80-96) H 03/29/18 08:05 MCH 34.6 pg (25.7-33.7) H 03/29/18 08:05 MCHC 34.1 g/dl (32.0-35.9) 03/29/18 08:05 RDW 13.0 % (11.9-15.9) 03/29/18 08:05 Plt Count 174 K/MM3 (134-434) 03/29/18 08:05 MPV 7.4 fl (7.5-11.1) L D 03/29/18 08:05 Neutrophils % 70.8 % (42.8-82.8) 03/29/18 08:05 Lymphocytes % 11.9 % (8-40) 03/29/18 08:05 Monocytes % 16.2 % (3.8-10.2) H 03/29/18 08:05 Eosinophils % 0.3 % (0-4.5) 03/29/18 08:05 Basophils % 0.8 % (0-2.0) 03/29/18 08:05 ESR 119 mm/hr (0-20) H 03/29/18 08:05 Sodium 133 mmol/L (136-145) L 03/29/18 08:05 Potassium 3.9 mmol/L (3.5-5.1) 03/29/18 08:05 Chloride 102 mmol/L (98-107) 03/29/18 08:05 Carbon Dioxide 25 mmol/L (22-28) 03/29/18 08:05 Anion Gap 6 (8-16) L 03/29/18 08:05 BUN 13 mg/dl (7-18) D 03/29/18 08:05 Creatinine 1.0 mg/dl (0.6-1.3) 03/29/18 08:05 Creat Clearance w eGFR > 60 (>60) 03/29/18 08:05 Random Glucose 159 mg/dl (74-106) H D 03/29/18 08:05 Lactic Acid 1.2 mmol/L (0.0-2.0) 03/27/18 14:15 Calcium 7.7 mg/dl (8.4-10.2) L 03/29/18 08:05 Phosphorus 2.6 mg/dl (2.5-4.6) 03/28/18 13:05 Magnesium 1.6 mg/dL (1.8-2.4) L 03/28/18 13:05 Total Bilirubin 0.6 mg/dl (0.2-1.0) 03/29/18 08:05 AST 30 U/L (10-42) 03/29/18 08:05 ALT 23 U/L (10-40) 03/29/18 08:05 Alkaline Phosphatase 81 U/L (32-92) 03/29/18 08:05 C-Reactive Protein 18.1 MG/DL (0.00-0.3) H 03/29/18 08:05 Total Protein 6.4 g/dl (6.4-8.3) 03/29/18 08:05 Albumin 2.1 g/dl (3.5-5.0) L 03/29/18 08:05 Prostate Specific Ag < 0.10 ng/ml (0.0-4.0) 03/29/18 08:05 Microbiology 03/27/18 16:00 Urine Culture - Final Urine - Urine Clean Catch Enterococcus Faecalis 03/27/18 14:16 Blood Culture - Preliminary Blood - Peripheral Venous NO GROWTH OBTAINED AFTER 72 HOURS, INCUBATION TO CONTINUE FOR 2 DAYS. 03/27/18 14:16 Blood Culture - Preliminary Blood - Peripheral Venous NO GROWTH OBTAINED AFTER 72 HOURS, INCUBATION TO CONTINUE FOR 2 DAYS. Physical Constitutional: Yes: No Distress. Awake. Neck: Yes: Supple/no jvd Cardiovascular: Yes: Regular Rate and Rhythm Respiratory: Yes: CTA Bilaterally Gastrointestinal: Yes: Soft/ non tender. Edema: No Wound/Incision: Yes: Other (sacral/ left buttock decubitus) Assessment/Plan better Abx fluids decubitus care daily oob - chair. will follow Problem List - Problems (1) Altered mental status, unspecified Code(s): R41.82 - ALTERED MENTAL STATUS, UNSPECIFIED (2) Fever Code(s): R50.9 - FEVER, UNSPECIFIED (3) Sepsis Code(s): A41.9 - SEPSIS, UNSPECIFIED ORGANISM (4) UTI (urinary tract infection) Code(s): N39.0 - URINARY TRACT INFECTION, SITE NOT SPECIFIED
[2018-03-30] MEDS: ATORVASTATIN CA 20 MG TABLET (FP) PO SCH (21:46)
[2018-03-30] MEDS: ASCORBIC ACID 500 MG TABLET (FP) PO SCH (21:47)
[2018-03-30] MEDS: DUTASTERIDE 0.5 MG CAP (FP) PO SCH (21:47)
[2018-03-30] MEDS: CYCLOBENZAPRINE HCL 10 MG TABLET (FP) PO SCH (21:48)
[2018-03-31] MEDS: PHENYTOIN NA EXTENDED 100 MG CAPSULE (FP) PO SCH ×3 (06:23→21:13)
[2018-03-31] MEDS: HEPARIN NA (PORCINE) 5,000 UNITS/ML 1ML VIAL SQ SCH ×2 (06:23→14:29)
[2018-03-31] MEDS: CALCIUM 500MG/VIT-D 200 UNITS COMBO TABLET (FP) PO SCH ×2 (09:05→20:40)
[2018-03-31] MEDS ORDERED: PT OWN MED DRAWER 7, Y5N ONE ×5 (09:13→22:07)
[2018-03-31] MEDS: TAMSULOSIN HCL 0.4 MG CAP.ER.24H (FP) PO SCH ×2 (09:15→18:51)
[2018-03-31] MEDS: TETRAHYDROZOLINE HCL EYE DROPS OS SCH ×2 (09:43→21:14)
[2018-03-31] MEDS: KETOCONAZOLE 2% CREAM - 60GM TUBE TP SCH ×2 (09:43→21:15)
[2018-03-31] MEDS: CEFTRIAXONE 2 GM-D5W BAG 2 GM/50 ML BAG IVPB SCH (09:43)
[2018-03-31] MEDS: PHENYTOIN NA PO SCH ×2 (09:51→21:13)
--- NOTE | 2018-03-31 09:55 | PN ---
Progress Note, Physician History of Present Illness: Awake, responsive No acute distress + low grade fever Blood c/s no growth Urine c/s Enterococcal sp. - Current Medication List Current Medications: Active Medications Acetaminophen (Tylenol -) 650 mg PO Q4H PRN PRN Reason: PAIN LEVEL 1-5 Last Admin: 03/30/18 21:47 Dose: 650 mg Ascorbic Acid (Vitamin C -) 500 mg PO [facility] Last Admin: 03/30/18 21:47 Dose: 500 mg Atorvastatin Calcium (Lipitor -) 20 mg PO HS [facility] Last Admin: 03/30/18 21:46 Dose: 20 mg Calcium Carbonate/Cholecalciferol (Os-Cesar 500+D -) 1 tab PO BID@0800,2000 [facility] Last Admin: 03/31/18 09:05 Dose: 1 tab Cyclobenzaprine HCl (Flexeril -) 5 mg PO [facility] Last Admin: 03/30/18 21:48 Dose: 5 mg Dutasteride (Avodart -) 0.5 mg PO [facility] Last Admin: 03/30/18 21:47 Dose: 0.5 mg Guaifenesin (Robitussin -) 10 ml PO Q6H PRN PRN Reason: COUGH Heparin Sodium (Porcine) (Heparin -) 5,000 unit SQ TID [facility] Last Admin: 03/31/18 06:23 Dose: 5,000 unit Sodium Chloride (Normal Saline -) 1,000 mls @ 83 mls/hr IV ASDIR [facility] Last Admin: 03/30/18 18:14 Dose: 83 mls/hr Potassium Chloride/Dextrose/Sod Cl (D5-1/2ns+20 Meq Kcl -) 20 meq in 1,000 mls @ 125 mls/hr IV ASDIR [facility] Last Admin: 03/29/18 19:07 Dose: 125 mls/hr Ceftriaxone Sodium (Ceftriaxone 2 Gm-D5w Bag) 2 gm in 50 mls @ 100 mls/hr IVPB DAILY [facility] Last Admin: 03/31/18 09:43 Dose: 100 mls/hr Ketoconazole (Nizoral 2% Cream -) 1 applic TP BID [facility] Last Admin: 03/31/18 09:43 Dose: 1 applic Phenytoin Sodium (Dilantin -) 100 mg PO TID [facility] Last Admin: 03/31/18 06:23 Dose: 100 mg Phenytoin Sodium (Dilantin -) 30 mg PO BID [facility] Last Admin: 03/31/18 09:51 Dose: 30 mg Tamsulosin HCl (Flomax -) 0.4 mg PO BID@0830,1830 [facility] Last Admin: 03/31/18 09:15 Dose: 0.4 mg Tetrahydrozoline HCl (Visine -) 2 drop OS BID [facility] Last Admin: 03/31/18 09:43 Dose: 2 drop - Objective Vital Signs: Vital Signs Temperature 98.6 F 03/31/18 07:53 Pulse Rate 77 03/31/18 06:00 Respiratory Rate 18 03/31/18 06:00 Blood Pressure 111/67 03/31/18 06:00 O2 Sat by Pulse Oximetry (%) 97 03/31/18 08:16 Constitutional: Yes: No Distress Eyes: Yes: Conjunctiva Clear Cardiovascular: Yes: Regular Rate and Rhythm, S1, S2 Respiratory: Yes: CTA Bilaterally Gastrointestinal: Yes: Normal Bowel Sounds, Soft, Abdomen, Obese, Other ( slightly distended). No: Tenderness Labs: CBC, BMP 03/29/18 08:05 03/29/18 08:05 Assessment/Plan Fever UTI/ poosible sepsis secondary to source Down's syndrome Substitute ampicillin 2gm q6h Reculture for recurrent fever
[2018-03-31] MEDS: ACETAMINOPHEN 325 MG TABLET (FP) PO PRN (14:28)
[2018-03-31] MEDS: AMPICILLIN - 2 GM in SODIUM CHLORIDE 100 ML IVPB SCH ×2 (14:29→20:40)
--- NOTE | 2018-03-31 16:43 | PN ---
Progress Note (short form) - Note Progress Note: pt better continue to have fever Abx changed by I/d I had ordered u/s dvt - to check occult source of fever-- Came back + !! Pt has been on heparin s/q for dvt. eating better recent mri -- 03/21/18-- done outside showed renal lesions-- u/s showed cysts will consult urology overall looks better denies pain. Vital Signs Temp 100.0 F H 03/31/18 14:41 Pulse 93 H 03/31/18 14:41 Resp 16 03/31/18 14:41 BP 92/64 03/31/18 14:41 Pulse Ox 98 03/31/18 14:41 Intake & Output 03/30/18 03/31/18 03/31/18 23:59 11:59 23:59 Intake Total 1250 450 375 Balance 1250 450 375 Intake: IV 1250 D5-1/2NS+20 MEQ KCL - 20 1250 meq In 1,000 ml @ 125 mls /hr IV [facility] Rx#: [id number] Oral 450 375 Other: Voiding Method Diaper Diaper # Unmeasured Voids Void 1 1 Active Medications Acetaminophen (Tylenol -) 650 mg PO Q4H PRN PRN Reason: PAIN LEVEL 1-5 Last Admin: 03/28/18 13:52 Dose: 650 mg Ascorbic Acid (Vitamin C -) 500 mg PO [facility] Last Admin: 03/28/18 22:09 Dose: 500 mg Atorvastatin Calcium (Lipitor -) 20 mg PO [facility] Last Admin: 03/28/18 22:09 Dose: 20 mg Calcium Carbonate/Cholecalciferol (Os-Cesar 500+D -) 1 tab PO BID@0800,2000 [facility] Last Admin: 03/28/18 20:38 Dose: 1 tab Cyclobenzaprine HCl (Flexeril -) 5 mg PO [facility] Last Admin: 03/28/18 22:09 Dose: 5 mg Dutasteride (Avodart -) 0.5 mg PO [facility] Last Admin: 03/28/18 22:09 Dose: 0.5 mg Guaifenesin (Robitussin -) 10 ml PO Q6H PRN PRN Reason: COUGH Heparin Sodium (Porcine) (Heparin -) 5,000 unit SQ TID [facility] Last Admin: 03/29/18 06:27 Dose: 5,000 unit Sodium Chloride (Normal Saline -) 1,000 mls @ 83 mls/hr IV [facility] Last Admin: 03/28/18 18:21 Dose: 83 mls/hr Potassium Chloride/Dextrose/Sod Cl (D5-1/2ns+20 Meq Kcl -) 20 meq in 1,000 mls @ 125 mls/hr IV [facility] Ceftriaxone Sodium (Ceftriaxone 2 Gm-D5w Bag) 2 gm in 50 mls @ 100 mls/hr IVPB DAILY [facility] Ketoconazole (Nizoral 2% Cream -) 1 applic TP BID [facility] Last Admin: 03/28/18 22:08 Dose: 1 applic Phenytoin Sodium (Dilantin -) 100 mg PO TID [facility] Last Admin: 03/29/18 06:27 Dose: 100 mg Phenytoin Sodium (Dilantin -) 30 mg PO BID [facility] Last Admin: 03/28/18 22:10 Dose: 30 mg Tamsulosin HCl (Flomax -) 0.4 mg PO BID@0830,1830 [facility] Last Admin: 03/28/18 18:21 Dose: 0.4 mg Tetrahydrozoline HCl (Visine -) 2 drop OS BID [facility] Last Admin: 03/28/18 22:10 Dose: 2 drop CBC, BMP 03/29/18 08:05 03/29/18 08:05 Microbiology 03/27/18 14:16 Blood Culture - Preliminary Blood - Peripheral Venous NO GROWTH OBTAINED AFTER 96 HOURS, INCUBATION TO CONTINUE FOR 1 DAYS. 03/27/18 14:16 Blood Culture - Preliminary Blood - Peripheral Venous NO GROWTH OBTAINED AFTER 96 HOURS, INCUBATION TO CONTINUE FOR 1 DAYS. 03/27/18 16:00 Urine Culture - Final Urine - Urine Clean Catch Enterococcus Faecalis u/s == +ve rle dvt Physical Constitutional: Yes: No Distress. Awake. Neck: Yes: Supple/no jvd Cardiovascular: Yes: Regular Rate and Rhythm Respiratory: Yes: CTA Bilaterally Gastrointestinal: Yes: Soft/ non tender. Edema: No Wound/Incision: Yes: Other (sacral/ left buttock decubitus) Assessment/Plan better Abx fluids-- decrease rate decubitus care start on lovenox hematology and urology consults out pts mri are in chart daily oob - chair. will follow. discussed with Nursing staff also. Problem List - Problems (1) Altered mental status, unspecified Code(s): R41.82 - ALTERED MENTAL STATUS, UNSPECIFIED (2) Fever Code(s): R50.9 - FEVER, UNSPECIFIED (3) Sepsis Code(s): A41.9 - SEPSIS, UNSPECIFIED ORGANISM (4) UTI (urinary tract infection) Code(s): N39.0 - URINARY TRACT INFECTION, SITE NOT SPECIFIED
[2018-03-31] MEDS: D5-1/2NS+20 MEQ KCL - 20 MEQ/1,000 ML INFUS.BAG IV SCH (17:06)
[2018-03-31] MEDS: ENOXAPARIN NA (PORCINE) 80 MG/0.8 ML DISP.SYRIN SQ SCH ×2 (17:07→21:12)
[2018-03-31] MEDS ORDERED: RANITIDINE HCL 150 MG TABLET (FP) PO ONE (18:30)
[2018-03-31] MEDS ORDERED: IBUPROFEN 400 MG TABLET (FP) PO ONE (18:30)
[2018-03-31] MEDS: DUTASTERIDE 0.5 MG CAP (FP) PO SCH (21:13)
[2018-03-31] MEDS: ATORVASTATIN CA 20 MG TABLET (FP) PO SCH (21:13)
[2018-03-31] MEDS: ASCORBIC ACID 500 MG TABLET (FP) PO SCH (21:13)
[2018-03-31] MEDS: CYCLOBENZAPRINE HCL 10 MG TABLET (FP) PO SCH (21:14)
[2018-04-01] MEDS ORDERED: PT OWN MED DRAWER 7, Y5N ONE ×5 (01:05→20:34)
[2018-04-01] MEDS: AMPICILLIN - 2 GM in SODIUM CHLORIDE 100 ML IVPB SCH ×4 (02:57→20:37)
[2018-04-01] MEDS: PHENYTOIN NA EXTENDED 100 MG CAPSULE (FP) PO SCH ×3 (06:04→21:07)
--- NOTE | 2018-04-01 08:07 | PN ---
Progress Note (short form) - Note Progress Note: comfortable looks better denies pain. afebrile Vital Signs Temp 98.4 F 04/01/18 03:00 Pulse 74 04/01/18 03:00 Resp 19 04/01/18 03:00 BP 111/70 04/01/18 03:00 Pulse Ox 98 04/01/18 06:36 Intake & Output 03/31/18 03/31/18 04/01/18 11:59 23:59 11:59 Intake Total 450 1075 930 Balance 450 1075 930 Intake: IV 830 D5-1/2NS+20 MEQ KCL - 20 830 meq In 1,000 ml @ 83 mls/ hr IV ASDIR [facility] Rx#: [id number] IVPB 100 100 Oral 450 975 Other: Voiding Method Diaper Diaper Diaper # Unmeasured Voids Void 1 3 2 Bowel Movement No Active Medications Acetaminophen (Tylenol -) 650 mg PO Q4H PRN PRN Reason: PAIN LEVEL 1-5 Last Admin: 03/31/18 14:28 Dose: 650 mg Ascorbic Acid (Vitamin C -) 500 mg PO [facility] Last Admin: 03/31/18 21:13 Dose: 500 mg Atorvastatin Calcium (Lipitor -) 20 mg PO [facility] Last Admin: 03/31/18 21:13 Dose: 20 mg Calcium Carbonate/Cholecalciferol (Os-Cesar 500+D -) 1 tab PO BID@0800,2000 [facility] Last Admin: 03/31/18 20:40 Dose: 1 tab Cyclobenzaprine HCl (Flexeril -) 5 mg PO [facility] Last Admin: 03/31/18 21:14 Dose: 5 mg Dutasteride (Avodart -) 0.5 mg PO [facility] Last Admin: 03/31/18 21:13 Dose: 0.5 mg Enoxaparin Sodium (Lovenox -) 70 mg SQ BID [facility] Last Admin: 03/31/18 21:12 Dose: 70 mg Guaifenesin (Robitussin -) 10 ml PO Q6H PRN PRN Reason: COUGH Ampicillin Sodium 2 gm/ Sodium (Chloride) 100 mls @ 200 mls/hr IVPB Q6H-IV JOE PRN Reason: Protocol Last Admin: 04/01/18 02:57 Dose: 200 mls/hr Potassium Chloride/Dextrose/Sod Cl (D5-1/2ns+20 Meq Kcl -) 20 meq in 1,000 mls @ 83 mls/hr IV ASDIR [facility] Last Admin: 03/31/18 17:06 Dose: 83 mls/hr Ketoconazole (Nizoral 2% Cream -) 1 applic TP BID [facility] Last Admin: 03/31/18 21:15 Dose: 1 applic Phenytoin Sodium (Dilantin -) 100 mg PO TID [facility] Last Admin: 04/01/18 06:04 Dose: 100 mg Phenytoin Sodium (Dilantin -) 30 mg PO BID [facility] Last Admin: 03/31/18 21:13 Dose: 30 mg Tamsulosin HCl (Flomax -) 0.4 mg PO BID@0830,1830 [facility] Last Admin: 03/31/18 18:51 Dose: 0.4 mg Tetrahydrozoline HCl (Visine -) 2 drop OS BID [facility] Last Admin: 03/31/18 21:14 Dose: 2 drop Today Labs - Pending u/s == +ve rle dvt-- extensive Physical Constitutional: Yes: No Distress. Awake.comfortable Neck: Yes: Supple/no jvd Cardiovascular: Yes: Regular Rate and Rhythm Respiratory: Yes: CTA Bilaterally Gastrointestinal: Yes: Soft/ non tender. Edema: no Wound/Incision: Yes: Other (sacral/ left buttock decubitus) Assessment/Plan better Abx eating better mild hydration today decubitus care a/c hematology and urology consults -pending will consult vascular also out pts mri are in chart daily oob - chair. will follow. discussed with Nursing staff also. Problem List - Problems (1) Altered mental status, unspecified Code(s): R41.82 - ALTERED MENTAL STATUS, UNSPECIFIED (2) Fever Code(s): R50.9 - FEVER, UNSPECIFIED (3) Sepsis Code(s): A41.9 - SEPSIS, UNSPECIFIED ORGANISM (4) UTI (urinary tract infection) Code(s): N39.0 - URINARY TRACT INFECTION, SITE NOT SPECIFIED
[2018-04-01 08:27] LABS: ALBUMIN 1.7 g/dl (3.5-5.0); ALK PHOS 78 U/L (32-92); ANION GAP 3 (8-16); BILIRUBIN,TOTAL 0.5 mg/dl (0.2-1.0); BLOOD UREA NITROGEN 13 mg/dl (7-18); CALCIUM 7.6 mg/dl (8.4-10.2); CHLORIDE 103 mmol/L (98-107); CO2 28 mmol/L (22-28); CREATININE 1.1 mg/dl (0.6-1.3); GLUCOSE,RANDOM 165 mg/dl (74-106); POTASSIUM 4.3 mmol/L (3.5-5.1); SGOT/AST 34 U/L (10-42); SGPT/ALT 47 U/L (10-40); SODIUM 134 mmol/L (136-145); TOT PROT 5.9 g/dl (6.4-8.3)
[2018-04-01] MEDS: CALCIUM 500MG/VIT-D 200 UNITS COMBO TABLET (FP) PO SCH ×2 (08:37→20:37)
[2018-04-01] MEDS: TAMSULOSIN HCL 0.4 MG CAP.ER.24H (FP) PO SCH ×3 (08:37→19:12)
[2018-04-01 09:09] LABS: BASO % 0.3 % (0-2.0); EOS % 0.4 % (0-4.5); HEMATOCRIT 33.9 % (35.4-49); HEMOGLOBIN 11.4 GM/dl (11.7-16.9); LYMPH % 7.8 % (8-40); MCH 34.3 pg (25.7-33.7); MCHC 33.7 g/dl (32.0-35.9); MEAN CELL VOLUME 101.9 fl (80-96); MEAN PLT VOLUME 8.7 fl (7.5-11.1); MONO % 15.5 % (3.8-10.2); PLATELET COUNT 210 K/MM3 (134-434); RBC 3.33 M/mm3 (4.00-5.60); RDW 13.3 % (11.9-15.9)
[2018-04-01 09:22] LABS: WHITE BLOOD COUNT 10.1 K/mm3 (4.0-10.8)
[2018-04-01] MEDS: PHENYTOIN NA PO SCH ×2 (09:40→21:08)
[2018-04-01] MEDS: ENOXAPARIN NA (PORCINE) 80 MG/0.8 ML DISP.SYRIN SQ SCH ×2 (09:40→21:08)
[2018-04-01] MEDS: TETRAHYDROZOLINE HCL EYE DROPS OS SCH ×2 (09:41→21:09)
[2018-04-01] MEDS: KETOCONAZOLE 2% CREAM - 60GM TUBE TP SCH ×2 (09:41→21:09)
[2018-04-01 10:14] LABS: ERYTHROCYTE SEDIMENTATION RATE 123 mm/hr (0-20)
--- NOTE | 2018-04-01 10:37 | PN ---
Progress Note, Physician History of Present Illness: Awake, responsive States he's feeling better No acute distress + low grade fever continues Blood c/s GPR likely contaminant Urine c/s Enterococcus - Current Medication List Current Medications: Active Medications Acetaminophen (Tylenol -) 650 mg PO Q4H PRN PRN Reason: PAIN LEVEL 1-5 Last Admin: 03/31/18 14:28 Dose: 650 mg Ascorbic Acid (Vitamin C -) 500 mg PO [facility] Last Admin: 03/31/18 21:13 Dose: 500 mg Atorvastatin Calcium (Lipitor -) 20 mg PO [facility] Last Admin: 03/31/18 21:13 Dose: 20 mg Calcium Carbonate/Cholecalciferol (Os-Cesar 500+D -) 1 tab PO BID@0800,2000 [facility] Last Admin: 04/01/18 08:37 Dose: 1 tab Cyclobenzaprine HCl (Flexeril -) 5 mg PO [facility] Last Admin: 03/31/18 21:14 Dose: 5 mg Dutasteride (Avodart -) 0.5 mg PO [facility] Last Admin: 03/31/18 21:13 Dose: 0.5 mg Enoxaparin Sodium (Lovenox -) 70 mg SQ BID [facility] Last Admin: 04/01/18 09:40 Dose: 70 mg Guaifenesin (Robitussin -) 10 ml PO Q6H PRN PRN Reason: COUGH Ampicillin Sodium 2 gm/ Sodium (Chloride) 100 mls @ 200 mls/hr IVPB Q6H-IV JOE PRN Reason: Protocol Last Admin: 04/01/18 09:40 Dose: 200 mls/hr Potassium Chloride/Dextrose/Sod Cl (D5-1/2ns+20 Meq Kcl -) 20 meq in 1,000 mls @ 83 mls/hr IV ASDIR [facility] Last Admin: 03/31/18 17:06 Dose: 83 mls/hr Ketoconazole (Nizoral 2% Cream -) 1 applic TP BID [facility] Last Admin: 04/01/18 09:41 Dose: 1 applic Phenytoin Sodium (Dilantin -) 100 mg PO TID [facility] Last Admin: 04/01/18 06:04 Dose: 100 mg Phenytoin Sodium (Dilantin -) 30 mg PO BID [facility] Last Admin: 04/01/18 09:40 Dose: 30 mg Tamsulosin HCl (Flomax -) 0.4 mg PO BID@0830,1830 [facility] Last Admin: 04/01/18 09:40 Dose: 0.4 mg Tetrahydrozoline HCl (Visine -) 2 drop OS BID [facility] Last Admin: 04/01/18 09:41 Dose: 2 drop - Objective Vital Signs: Vital Signs Temperature 98.4 F 04/01/18 03:00 Pulse Rate 74 04/01/18 03:00 Respiratory Rate 19 04/01/18 03:00 Blood Pressure 111/70 04/01/18 03:00 O2 Sat by Pulse Oximetry (%) 98 04/01/18 06:36 Constitutional: Yes: No Distress Eyes: Yes: Conjunctiva Clear Cardiovascular: Yes: Regular Rate and Rhythm, S1, S2 Respiratory: Yes: CTA Bilaterally Gastrointestinal: Yes: Normal Bowel Sounds, Soft, Abdomen, Obese. No: Tenderness Peripheral Pulses WNL: Yes Labs: CBC, BMP 04/01/18 07:55 04/01/18 07:55 Assessment/Plan Fever ? source ? DVT UTI/ possible sepsis secondary to source Down's syndrome Continue ampicillin 2gm q6h Reculture for recurrent fever
[2018-04-01] MEDS: ACETAMINOPHEN 325 MG TABLET (FP) PO PRN ×2 (14:55→23:40)
[2018-04-01] MEDS: D5-1/2NS+20 MEQ KCL - 20 MEQ/1,000 ML INFUS.BAG IV SCH (19:04)
[2018-04-01] MEDS: ASCORBIC ACID 500 MG TABLET (FP) PO SCH (21:07)
[2018-04-01] MEDS: DUTASTERIDE 0.5 MG CAP (FP) PO SCH (21:07)
[2018-04-01] MEDS: CYCLOBENZAPRINE HCL 10 MG TABLET (FP) PO SCH (21:07)
[2018-04-01] MEDS: ATORVASTATIN CA 20 MG TABLET (FP) PO SCH (21:07)
[2018-04-02] MEDS ORDERED: PT OWN MED DRAWER 7, Y5N ONE ×4 (01:39→21:16)
[2018-04-02] MEDS: AMPICILLIN - 2 GM in SODIUM CHLORIDE 100 ML IVPB SCH ×4 (03:04→21:00)
[2018-04-02] MEDS: PHENYTOIN NA EXTENDED 100 MG CAPSULE (FP) PO SCH ×3 (06:05→21:31)
[2018-04-02] MEDS: ACETAMINOPHEN 325 MG TABLET (FP) PO PRN (06:46)
--- NOTE | 2018-04-02 08:16 | PN ---
Progress Note, Physician History of Present Illness: eating better no complains denies pain. calm. low grade fever constipated - Current Medication List Current Medications: Active Medications Acetaminophen (Tylenol -) 650 mg PO Q4H PRN PRN Reason: PAIN LEVEL 1-5 Last Admin: 04/02/18 06:46 Dose: 650 mg Ascorbic Acid (Vitamin C -) 500 mg PO [facility] Last Admin: 04/01/18 21:07 Dose: 500 mg Atorvastatin Calcium (Lipitor -) 20 mg PO [facility] Last Admin: 04/01/18 21:07 Dose: 20 mg Calcium Carbonate/Cholecalciferol (Os-Cesar 500+D -) 1 tab PO BID@0800,2000 [facility] Last Admin: 04/01/18 20:37 Dose: 1 tab Cyclobenzaprine HCl (Flexeril -) 5 mg PO [facility] Last Admin: 04/01/18 21:07 Dose: 5 mg Docusate Sodium (Colace -) 100 mg PO TID [facility] Dutasteride (Avodart -) 0.5 mg PO [facility] Last Admin: 04/01/18 21:07 Dose: 0.5 mg Enoxaparin Sodium (Lovenox -) 70 mg SQ BID [facility] Last Admin: 04/01/18 21:08 Dose: 70 mg Guaifenesin (Robitussin -) 10 ml PO Q6H PRN PRN Reason: COUGH Ampicillin Sodium 2 gm/ Sodium (Chloride) 100 mls @ 200 mls/hr IVPB Q6H-IV JOE PRN Reason: Protocol Last Admin: 04/02/18 03:04 Dose: 200 mls/hr Ketoconazole (Nizoral 2% Cream -) 1 applic TP BID [facility] Last Admin: 04/01/18 21:09 Dose: 1 applic Phenytoin Sodium (Dilantin -) 100 mg PO TID [facility] Last Admin: 04/02/18 06:05 Dose: 100 mg Phenytoin Sodium (Dilantin -) 30 mg PO BID [facility] Last Admin: 04/01/18 21:08 Dose: 30 mg Polyethylene Glycol (Miralax (For Daily Use) -) 17 gm PO DAILY [facility] Tamsulosin HCl (Flomax -) 0.4 mg PO BID@0830,1830 [facility] Last Admin: 04/01/18 19:12 Dose: 0.4 mg Tetrahydrozoline HCl (Visine -) 2 drop OS BID [facility] Last Admin: 04/01/18 21:09 Dose: 2 drop - Objective Vital Signs: Vital Signs Temperature 97.9 F 04/02/18 06:00 Pulse Rate 78 04/02/18 06:00 Respiratory Rate 18 04/02/18 06:00 Blood Pressure 110/63 04/02/18 06:00 O2 Sat by Pulse Oximetry (%) 95 04/02/18 06:00 Constitutional: Yes: No Distress, Calm Eyes: Yes: Conjunctiva Clear Neck: Yes: Supple Cardiovascular: Yes: Regular Rate and Rhythm Respiratory: Yes: CTA Bilaterally Gastrointestinal: Yes: Soft Extremities: Yes: Other (mild right calf tenderness +) Edema: No Neurological: Yes: Other (awake) Labs: CBC, BMP 04/01/18 07:55 04/01/18 07:55 Problem List - Problems (1) Altered mental status, unspecified Code(s): R41.82 - ALTERED MENTAL STATUS, UNSPECIFIED (2) Fever Code(s): R50.9 - FEVER, UNSPECIFIED (3) Sepsis Code(s): A41.9 - SEPSIS, UNSPECIFIED ORGANISM (4) UTI (urinary tract infection) Code(s): N39.0 - URINARY TRACT INFECTION, SITE NOT SPECIFIED (5) DVT (deep venous thrombosis) Code(s): I82.409 - ACUTE EMBOLISM AND THOMBOS UNSP DEEP VN UNSP LOWER EXTREMITY Assessment/Plan Better Abx off fluids f/u labs. vascular/ hematology/ urology consult s pending add colace will follow. discussed with nursing staff also.
[2018-04-02] MEDS: CALCIUM 500MG/VIT-D 200 UNITS COMBO TABLET (FP) PO SCH ×2 (08:55→21:31)
[2018-04-02] MEDS: TAMSULOSIN HCL 0.4 MG CAP.ER.24H (FP) PO SCH ×2 (08:55→18:37)
--- NOTE | 2018-04-02 10:05 | CONSULT ---
- Consultation REQUESTING PROVIDER: CONSULT REQUEST: We have been asked to surgically evaluate this patient for Right LE DVT PCP:Reid Orosco HISTORY OF PRESENT ILLNESS: The patient is a 57 yo male with Down syndrome who presented to the ER with a fever to 101, difficulty ambulating. He has a history of recent UTI with treatment and hickman placement. Upon admission he was found to have a UTI and is being treated with IV antibiotics. Overall, as per the nursing staff he is nonabmulatory and difficult to transfer. Duplex of his Right leg revealed a Right leg DVT PMHx: Down syndrome/UTI PSHx: healed incision over left knee and left outer thigh Home Medications Medication Instructions Recorded Acetaminophen 325 mg PO QID PRN 03/27/18 Ascorbic Acid [C-500] 500 mg PO HS 03/27/18 Atorvastatin Ca [Lipitor] 20 mg PO HS 03/27/18 Calcium Carbonate/Vitamin D3 1 each PO BID 03/27/18 [Oyster Shell 500-Vit D3 200 Tb] Cyclobenzaprine HCl 5 mg PO HS 03/27/18 Dutasteride 0.5 mg PO HS 03/27/18 Emollient Combination No.71 1 TP BID 03/27/18 [Lubriderm Advanced Therapy] Ketoconazole 2% Cream [Nizoral 2% 1 applic TP BID 03/27/18 Cream -] Mineral Oil 2 drop AU HS 03/27/18 Phenytoin Na Extended [Dilantin -] 30 mg PO BID 03/27/18 Phenytoin Na Extended [Dilantin -] 100 mg PO TID 03/27/18 Phisoderm 03/27/18 Tamsulosin HCl [Flomax] 0.4 mg PO BID 03/27/18 Tamsulosin HCl [Flomax] 0.4 mg PO HS 03/27/18 Tetrahydrozoline HCl [Visine] 2 drop OS BID 03/27/18 Tussin Liquid 10 ml PO Q6H PRN 03/27/18 Allergies Allergy/AdvReac Type Severity Reaction Status Date / Time No Known Allergies Allergy Verified 03/18/18 15:08 REVIEW OF SYSTEMS: Difficult to assess history taken from chart CONSTITUTIONAL: Present: fever PHYSICAL EXAM: GENERAL: Awake, alert, and follows commands ABDOMEN: Soft, mild distention/tenderness. No rebound. LOWER EXTREMITIES: 2+ pulses, warm, well-perfused. No calf tenderness. RLE with +1 pitting edema, no erythema. PSYCH: Cooperative. Good eye contact. Appropriate mood and affect. Vital Signs Temperature 97.9 F 04/02/18 06:00 Pulse Rate 78 04/02/18 06:00 Respiratory Rate 18 04/02/18 06:00 Blood Pressure 110/63 04/02/18 06:00 O2 Sat by Pulse Oximetry (%) 95 04/02/18 08:21 Lab Results WBC 10.1 K/mm3 (4.0-10.8) D 04/01/18 07:55 RBC 3.33 M/mm3 (4.00-5.60) L 04/01/18 07:55 Hgb 11.4 GM/dl (11.7-16.9) L 04/01/18 07:55 Hct 33.9 % (35.4-49) L 04/01/18 07:55 MCV 101.9 fl (80-96) H 04/01/18 07:55 MCHC 33.7 g/dl (32.0-35.9) 04/01/18 07:55 RDW 13.3 % (11.9-15.9) 04/01/18 07:55 Plt Count 210 K/MM3 (134-434) D 04/01/18 07:55 Sodium 134 mmol/L (136-145) L 04/01/18 07:55 Potassium 4.3 mmol/L (3.5-5.1) 04/01/18 07:55 Chloride 103 mmol/L (98-107) 04/01/18 07:55 Carbon Dioxide 28 mmol/L (22-28) 04/01/18 07:55 Anion Gap 3 (8-16) L 04/01/18 07:55 BUN 13 mg/dl (7-18) 04/01/18 07:55 Creatinine 1.1 mg/dl (0.6-1.3) 04/01/18 07:55 Random Glucose 165 mg/dl (74-106) H 04/01/18 07:55 Calcium 7.6 mg/dl (8.4-10.2) L 04/01/18 07:55 Duplex: partial occlusion of CFV, non-compression of SFA, popliteal and Posterior tibialis vein Microbiology 03/27/18 16:00 Urine - Urine Clean Catch Urine Culture - Final Enterococcus Faecalis 03/27/18 14:16 Blood - Peripheral Venous Blood Culture - Final NO GROWTH AFTER 5 DAYS INCUBATION 03/27/18 14:16 Blood - Peripheral Venous Blood Culture - Preliminary Non Spore Form Gram Pos Teddy Problem List - Problems (1) DVT (deep venous thrombosis) Assessment/Plan: Pt being anti coagulated with Lovenox 70mb BID, recommend to transition to oral anticoagulation and treat the patient for 6 months. D/w Dr. Adams the patients clinical presentation/history Agree with hematology consult and urology as needed Please reconsult as needed for any further managment Code(s): I82.409 - ACUTE EMBOLISM AND THOMBOS UNSP DEEP VN UNSP LOWER EXTREMITY Qualifiers: DVT location: lower extremity Chronicity: acute Laterality: right Visit type - Case Type Case Type: ED Admission - Emergency Emergency Visit: Yes ED Registration Date: 03/27/18 Care time: The patient presented to the Emergency Department on the above date and was hospitalized for further evaluation of their emergent condition. - New patient This patient is new to me today: Yes Date on this admission: 04/02/18
[2018-04-02] MEDS: ENOXAPARIN NA (PORCINE) 80 MG/0.8 ML DISP.SYRIN SQ SCH ×2 (10:11→21:30)
[2018-04-02] MEDS: PHENYTOIN NA PO SCH ×2 (10:11→21:32)
[2018-04-02] MEDS: TETRAHYDROZOLINE HCL EYE DROPS OS SCH ×2 (10:11→21:30)
[2018-04-02] MEDS: KETOCONAZOLE 2% CREAM - 60GM TUBE TP SCH ×2 (10:11→21:32)
[2018-04-02] MEDS: POLYETHYLENE GLYCOL 3350 119 GM BTL PO SCH (10:11)
[2018-04-02] MEDS: DOCUSATE SODIUM 100 MG CAPSULE (FP) PO SCH ×2 (14:00→21:31)
[2018-04-02] MEDS: ASCORBIC ACID 500 MG TABLET (FP) PO SCH (21:30)
[2018-04-02] MEDS: CYCLOBENZAPRINE HCL 10 MG TABLET (FP) PO SCH (21:30)
[2018-04-02] MEDS: DUTASTERIDE 0.5 MG CAP (FP) PO SCH (21:31)
[2018-04-02] MEDS: ATORVASTATIN CA 20 MG TABLET (FP) PO SCH (21:31)
[2018-04-03] MEDS ORDERED: PT OWN MED DRAWER 7, Y5N ONE ×4 (01:49→19:44)
[2018-04-03] MEDS: AMPICILLIN - 2 GM in SODIUM CHLORIDE 100 ML IVPB SCH ×4 (03:00→20:33)
[2018-04-03] MEDS: PHENYTOIN NA EXTENDED 100 MG CAPSULE (FP) PO SCH ×3 (06:22→21:08)
[2018-04-03] MEDS: DOCUSATE SODIUM 100 MG CAPSULE (FP) PO SCH ×3 (06:22→21:08)
--- NOTE | 2018-04-03 07:10 | CON.GU ---
Consult Consult Specialty:: Reason for Consultation:: urinary retention, renal cyst - History of Present Illness Chief Complaint: urinary retention, renal cyst History of Present Illness: 57 year old male with MR who presents with UTI. Renal US shows an 8cm cyst. He had a bladder volume of 190 and didn't void however He has been voiding a lot according to the nursing staff. he also suffers from constipation, - History Source History Provided By: Medical Record Limitations to Obtaining History: No Limitations - Past Medical History Renal/: Yes: UTI - Alcohol/Substance Use Hx Alcohol Use: No - Smoking History Smoking history: Never smoked Have you smoked in the past 12 months: No Aproximately how many cigarettes per day: 0 Home Medications - Allergies Allergies/Adverse Reactions: Allergies Allergy/AdvReac Type Severity Reaction Status Date / Time No Known Allergies Allergy Verified 03/18/18 15:08 - Home Medications Home Medications: Ambulatory Orders Acetaminophen 325 mg PO QID PRN 03/27/18 Ascorbic Acid [C-500] 500 mg PO HS 03/27/18 Atorvastatin Ca [Lipitor] 20 mg PO HS 03/27/18 Calcium Carbonate/Vitamin D3 [Oyster Shell 500-Vit D3 200 Tb] 1 each PO BID Cyclobenzaprine HCl 5 mg PO HS 03/27/18 Dutasteride 0.5 mg PO HS 03/27/18 Emollient Combination No.71 [Lubriderm Advanced Therapy] 1 TP BID 03/27/18 Ketoconazole 2% Cream [Nizoral 2% Cream -] 1 applic TP BID 03/27/18 Mineral Oil 2 drop AU HS 03/27/18 Phenytoin Na Extended [Dilantin -] 30 mg PO BID 03/27/18 Phenytoin Na Extended [Dilantin -] 100 mg PO TID 03/27/18 Phisoderm 03/27/18 Tamsulosin HCl [Flomax] 0.4 mg PO BID 03/27/18 Tamsulosin HCl [Flomax] 0.4 mg PO HS 03/27/18 Tetrahydrozoline HCl [Visine] 2 drop OS BID 03/27/18 Tussin Liquid 10 ml PO Q6H PRN 03/27/18 Review of Systems - Review of Systems Constitutional: reports: Fever Genitourinary: reports: Incontinence. denies: Dysuria, Flank Pain, Hematuria Physical Exam- Vital Signs: Vital Signs Temperature 98.8 F 04/03/18 06:00 Pulse Rate 82 04/03/18 06:00 Respiratory Rate 19 04/03/18 06:00 Blood Pressure 120/59 04/03/18 06:00 O2 Sat by Pulse Oximetry (%) 96 04/03/18 06:21 Constitutional: Yes: Well Nourished, No Distress, Calm Gastrointestinal: Yes: Soft Renal/: Yes: Incontinence. No: Bladder Distention, CVA Tenderness - Left, CVA Tenderness - Right, Lopez Present, Hematuria Labs: CBC, BMP 04/01/18 07:55 04/01/18 07:55 Problem List - Problems (1) Renal cyst Assessment/Plan: recommend CT scan follow up of US findings to R/O malignancy Code(s): N28.1 - CYST OF KIDNEY, ACQUIRED (2) UTI (urinary tract infection) Assessment/Plan: continue antibiotics and flomax. also aggressive bowel management for constipation Code(s): N39.0 - URINARY TRACT INFECTION, SITE NOT SPECIFIED
[2018-04-03 07:44] LABS: ALBUMIN 1.7 g/dl (3.5-5.0); ALK PHOS 91 U/L (32-92); ANION GAP 5 (8-16); BILIRUBIN,TOTAL 0.3 mg/dl (0.2-1.0); BLOOD UREA NITROGEN 13 mg/dl (7-18); CALCIUM 7.9 mg/dl (8.4-10.2); CHLORIDE 99 mmol/L (98-107); CO2 29 mmol/L (22-28); CREATININE 1.2 mg/dl (0.6-1.3); GLUCOSE,RANDOM 149 mg/dl (74-106); POTASSIUM 4.1 mmol/L (3.5-5.1); SGOT/AST 31 U/L (10-42); SGPT/ALT 41 U/L (10-40); SODIUM 133 mmol/L (136-145); TOT PROT 5.8 g/dl (6.4-8.3)
[2018-04-03] MEDS: CALCIUM 500MG/VIT-D 200 UNITS COMBO TABLET (FP) PO SCH ×2 (08:00→20:33)
[2018-04-03] MEDS ORDERED: MAGNESIUM SULF 50% (8.12 MEQ/2 ML-1 GM VIAL) IVPB ONE (08:10)
[2018-04-03 08:14] LABS: BASO % 0.5 % (0-2.0); EOS % 0.6 % (0-4.5); HEMATOCRIT 33.3 % (35.4-49); HEMOGLOBIN 11.4 GM/dl (11.7-16.9); LYMPH % 11.3 % (8-40); MCH 34.7 pg (25.7-33.7); MCHC 34.2 g/dl (32.0-35.9); MEAN CELL VOLUME 101.4 fl (80-96); MEAN PLT VOLUME 7.3 fl (7.5-11.1); MONO % 13.6 % (3.8-10.2); PLATELET COUNT 300 K/MM3 (134-434); RBC 3.29 M/mm3 (4.00-5.60); RDW 12.8 % (11.9-15.9); WHITE BLOOD COUNT 9.6 K/mm3 (4.0-10.8)
--- NOTE | 2018-04-03 08:14 | PN ---
Progress Note (short form) - Note Progress Note: pt seen/ examined more awake/ comfortable denies pain. eating better had fever last night. Urology consult noted/ appreciated Ct Scan ordered Vital Signs Temp 98.8 F 04/03/18 06:00 Pulse 82 04/03/18 06:00 Resp 19 04/03/18 06:00 BP 120/59 04/03/18 06:00 Pulse Ox 96 04/03/18 06:21 Intake & Output 04/02/18 04/02/18 04/03/18 11:59 23:59 11:59 Intake Total 901 400 200 Balance 901 400 200 Intake: IVPB 100 200 Oral 801 400 Other: Voiding Method Diaper Diaper Diaper # Unmeasured Voids Void 2 1 Bowel Movement No Yes Active Medications Acetaminophen (Tylenol -) 650 mg PO Q4H PRN PRN Reason: PAIN LEVEL 1-5 Last Admin: 04/03/18 00:00 Dose: 650 mg Ascorbic Acid (Vitamin C -) 500 mg PO [facility] Last Admin: 04/02/18 21:30 Dose: 500 mg Atorvastatin Calcium (Lipitor -) 20 mg PO [facility] Last Admin: 04/02/18 21:31 Dose: 20 mg Calcium Carbonate/Cholecalciferol (Os-Cesar 500+D -) 1 tab PO BID@0800,2000 [facility] Last Admin: 04/02/18 21:31 Dose: 1 tab Cyclobenzaprine HCl (Flexeril -) 5 mg PO [facility] Last Admin: 04/02/18 21:30 Dose: 5 mg Docusate Sodium (Colace -) 100 mg PO TID [facility] Last Admin: 04/03/18 06:22 Dose: 100 mg Dutasteride (Avodart -) 0.5 mg PO [facility] Last Admin: 04/02/18 21:31 Dose: 0.5 mg Enoxaparin Sodium (Lovenox -) 70 mg SQ BID [facility] Last Admin: 04/02/18 21:30 Dose: 70 mg Guaifenesin (Robitussin -) 10 ml PO Q6H PRN PRN Reason: COUGH Ampicillin Sodium 2 gm/ Sodium (Chloride) 100 mls @ 200 mls/hr IVPB Q6H-IV JOE PRN Reason: Protocol Last Admin: 04/03/18 03:00 Dose: 200 mls/hr Ketoconazole (Nizoral 2% Cream -) 1 applic TP BID [facility] Last Admin: 04/02/18 21:32 Dose: 1 applic Magnesium Sulfate (Magnesium Sulfate) 2 gm IVPB ONCE ONE Stop: 04/03/18 08:11 Phenytoin Sodium (Dilantin -) 100 mg PO TID [facility] Last Admin: 04/03/18 06:22 Dose: 100 mg Phenytoin Sodium (Dilantin -) 30 mg PO BID [facility] Last Admin: 04/02/18 21:32 Dose: 30 mg Polyethylene Glycol (Miralax (For Daily Use) -) 17 gm PO DAILY [facility] Last Admin: 04/02/18 10:11 Dose: 17 grams Tamsulosin HCl (Flomax -) 0.4 mg PO BID@0830,1830 [facility] Last Admin: 04/02/18 18:37 Dose: 0.4 mg Tetrahydrozoline HCl (Visine -) 2 drop OS BID [facility] Last Admin: 04/02/18 21:30 Dose: 2 drop CBC, BMP 04/03/18 07:15 cbc/ mag pending . Physical Constitutional: Yes: No Distress. Awake.comfortable. Neck: Yes: Supple/no jvd. Cardiovascular: Yes: Regular Rate and Rhythm Respiratory: Yes: CTA Bilaterally Gastrointestinal: Yes: Soft/ non tender. Edema: no Wound/Incision: Yes: Other (sacral/ left buttock decubitus) Assessment/Plan better Abx eating better decubitus care a/c hematology consult -pending daily oob - chair. will follow. discussed with Nursing staff also. supplement mag. Problem List - Problems (1) Altered mental status, unspecified Code(s): R41.82 - ALTERED MENTAL STATUS, UNSPECIFIED (2) Fever Code(s): R50.9 - FEVER, UNSPECIFIED (3) Sepsis Code(s): A41.9 - SEPSIS, UNSPECIFIED ORGANISM (4) UTI (urinary tract infection) Code(s): N39.0 - URINARY TRACT INFECTION, SITE NOT SPECIFIED (5) DVT (deep venous thrombosis) Code(s): I82.409 - ACUTE EMBOLISM AND THOMBOS UNSP DEEP VN UNSP LOWER EXTREMITY Qualifiers: DVT location: lower extremity Chronicity: acute Laterality: right
[2018-04-03] MEDS: TAMSULOSIN HCL 0.4 MG CAP.ER.24H (FP) PO SCH ×2 (08:35→18:41)
[2018-04-03] MEDS ORDERED: MAGNESIUM SULFATE IN WATER 2 GM/50 ML IVPB IVPB ONE ×2 (09:00→13:30)
--- NOTE | 2018-04-03 09:36 | CONSULT ---
Consult Consult Specialty:: heme Referred by:: Dr Orosco Reason for Consultation:: dvt - History of Present Illness History of Present Illness: 57 yom w Down's Synd residing in skilled nursing adm w recurrent UTI. Found to have RLE DVT, large renal cyst. Currently tx'd w lovenox. Had CT this AM - History Source History Provided By: Medical Record Limitations to Obtaining History: Other - Past Medical History Renal/: Yes: UTI - Alcohol/Substance Use Hx Alcohol Use: No - Smoking History Smoking history: Never smoked Have you smoked in the past 12 months: No Aproximately how many cigarettes per day: 0 Home Medications - Allergies Allergies/Adverse Reactions: Allergies Allergy/AdvReac Type Severity Reaction Status Date / Time No Known Allergies Allergy Verified 03/18/18 15:08 - Home Medications Home Medications: Ambulatory Orders Acetaminophen 325 mg PO QID PRN 03/27/18 Ascorbic Acid [C-500] 500 mg PO HS 03/27/18 Atorvastatin Ca [Lipitor] 20 mg PO HS 03/27/18 Calcium Carbonate/Vitamin D3 [Oyster Shell 500-Vit D3 200 Tb] 1 each PO BID Cyclobenzaprine HCl 5 mg PO HS 03/27/18 Dutasteride 0.5 mg PO HS 03/27/18 Emollient Combination No.71 [Lubriderm Advanced Therapy] 1 TP BID 03/27/18 Ketoconazole 2% Cream [Nizoral 2% Cream -] 1 applic TP BID 03/27/18 Mineral Oil 2 drop AU HS 03/27/18 Phenytoin Na Extended [Dilantin -] 30 mg PO BID 03/27/18 Phenytoin Na Extended [Dilantin -] 100 mg PO TID 03/27/18 Phisoderm 03/27/18 Tamsulosin HCl [Flomax] 0.4 mg PO BID 03/27/18 Tamsulosin HCl [Flomax] 0.4 mg PO HS 03/27/18 Tetrahydrozoline HCl [Visine] 2 drop OS BID 03/27/18 Tussin Liquid 10 ml PO Q6H PRN 03/27/18 Physical Exam Vital Signs: Vital Signs Temperature 98.8 F 04/03/18 06:00 Pulse Rate 82 04/03/18 06:00 Respiratory Rate 19 04/03/18 06:00 Blood Pressure 120/59 04/03/18 06:00 O2 Sat by Pulse Oximetry (%) 96 04/03/18 06:21 Constitutional: Yes: Well Nourished, No Distress Eyes: Yes: WNL Neck: Yes: Supple Cardiovascular: Yes: Regular Rate and Rhythm Respiratory: Yes: CTA Bilaterally Gastrointestinal: Yes: Normal Bowel Sounds, Soft Extremities: Yes: WNL Edema: No Labs: CBC, BMP 04/03/18 07:15 04/03/18 07:15 Assessment/Plan dvt, provoked in setting of reported recent decline in mobility, recent hospitalization? f/u CT results. If no evid malig, anticip transition to oral a/c can f/u in office
[2018-04-03 09:44] LABS: ERYTHROCYTE SEDIMENTATION RATE > 140 mm/hr (0-20)
[2018-04-03] MEDS: ACETAMINOPHEN 325 MG TABLET (FP) PO PRN ×4 (09:53→21:12)
[2018-04-03] MEDS: PHENYTOIN NA PO SCH ×2 (09:55→21:10)
[2018-04-03] MEDS: ENOXAPARIN NA (PORCINE) 80 MG/0.8 ML DISP.SYRIN SQ SCH ×2 (09:55→21:09)
[2018-04-03] MEDS: POLYETHYLENE GLYCOL 3350 119 GM BTL PO SCH (09:56)
[2018-04-03] MEDS: KETOCONAZOLE 2% CREAM - 60GM TUBE TP SCH ×2 (09:56→21:27)
[2018-04-03] MEDS: TETRAHYDROZOLINE HCL EYE DROPS OS SCH ×2 (09:56→21:09)
[2018-04-03 11:47] VITALS: BMI 35.1
[2018-04-03 14:08] LABS: MAGNESIUM 1.7 mg/dL (1.8-2.4)
[2018-04-03] MEDS: DUTASTERIDE 0.5 MG CAP (FP) PO SCH (21:08)
[2018-04-03] MEDS: ATORVASTATIN CA 20 MG TABLET (FP) PO SCH (21:08)
[2018-04-03] MEDS: CYCLOBENZAPRINE HCL 10 MG TABLET (FP) PO SCH (21:08)
[2018-04-03] MEDS: ASCORBIC ACID 500 MG TABLET (FP) PO SCH (21:09)
[2018-04-04] MEDS: AMPICILLIN - 2 GM in SODIUM CHLORIDE 100 ML IVPB SCH ×4 (01:00→21:25)
[2018-04-04] MEDS ORDERED: PT OWN MED DRAWER 7, Y5N ONE ×5 (02:07→19:29)
[2018-04-04] MEDS: PHENYTOIN NA EXTENDED 100 MG CAPSULE (FP) PO SCH ×3 (06:10→21:26)
[2018-04-04] MEDS: DOCUSATE SODIUM 100 MG CAPSULE (FP) PO SCH ×3 (06:10→21:26)
[2018-04-04] MEDS: TAMSULOSIN HCL 0.4 MG CAP.ER.24H (FP) PO SCH ×2 (08:10→18:12)
[2018-04-04] MEDS: CALCIUM 500MG/VIT-D 200 UNITS COMBO TABLET (FP) PO SCH ×2 (08:10→21:27)
--- NOTE | 2018-04-04 09:39 | PN ---
Progress Note, Physician History of Present Illness: comfortable no complains denies pain. calm. have bm yesterday after enema temp coming down. esr rising !! ct scan noted -- large cyst Urology/ oncology consults noted/ appreciated. - Current Medication List Current Medications: Active Medications Acetaminophen (Tylenol -) 650 mg PO Q4H PRN PRN Reason: PAIN LEVEL 1-5 Last Admin: 04/03/18 21:12 Dose: 650 mg Ascorbic Acid (Vitamin C -) 500 mg PO [facility] Last Admin: 04/03/18 21:09 Dose: 500 mg Atorvastatin Calcium (Lipitor -) 20 mg PO [facility] Last Admin: 04/03/18 21:08 Dose: 20 mg Calcium Carbonate/Cholecalciferol (Os-Cesar 500+D -) 1 tab PO BID@0800,2000 [facility] Last Admin: 04/04/18 08:10 Dose: 1 tab Cyclobenzaprine HCl (Flexeril -) 5 mg PO [facility] Last Admin: 04/03/18 21:08 Dose: 5 mg Docusate Sodium (Colace -) 100 mg PO TID [facility] Last Admin: 04/04/18 06:10 Dose: 100 mg Dutasteride (Avodart -) 0.5 mg PO [facility] Last Admin: 04/03/18 21:08 Dose: 0.5 mg Enoxaparin Sodium (Lovenox -) 70 mg SQ BID [facility] Last Admin: 04/03/18 21:09 Dose: 70 mg Guaifenesin (Robitussin -) 10 ml PO Q6H PRN PRN Reason: COUGH Ampicillin Sodium 2 gm/ Sodium (Chloride) 100 mls @ 200 mls/hr IVPB Q6H-IV [facility] PRN Reason: Protocol Last Admin: 04/04/18 08:10 Dose: 200 mls/hr Ketoconazole (Nizoral 2% Cream -) 1 applic TP BID [facility] Last Admin: 04/03/18 21:27 Dose: 1 applic Phenytoin Sodium (Dilantin -) 100 mg PO TID [facility] Last Admin: 04/04/18 06:10 Dose: 100 mg Phenytoin Sodium (Dilantin -) 30 mg PO BID [facility] Last Admin: 04/03/18 21:10 Dose: 30 mg Polyethylene Glycol (Miralax (For Daily Use) -) 17 gm PO DAILY [facility] Last Admin: 04/03/18 09:56 Dose: 17 grams Tamsulosin HCl (Flomax -) 0.4 mg PO BID@0830,1830 [facility] Last Admin: 04/04/18 08:10 Dose: 0.4 mg Tetrahydrozoline HCl (Visine -) 2 drop OS BID [facility] Last Admin: 04/03/18 21:09 Dose: 2 drop - Objective Vital Signs: Vital Signs Temperature 98.6 F 04/04/18 06:00 Pulse Rate 85 04/04/18 06:00 Respiratory Rate 20 04/04/18 08:36 Blood Pressure 105/51 04/04/18 06:00 O2 Sat by Pulse Oximetry (%) 100 04/04/18 08:36 Constitutional: Yes: No Distress, Calm Eyes: Yes: Conjunctiva Clear Neck: Yes: Supple Cardiovascular: Yes: Regular Rate and Rhythm Respiratory: Yes: CTA Bilaterally Gastrointestinal: Yes: Soft Edema: LLE: 1+, RLE: 1+ Neurological: Yes: Alert Labs: CBC, BMP 04/03/18 07:15 04/03/18 07:15 Problem List - Problems (1) Altered mental status, unspecified Code(s): R41.82 - ALTERED MENTAL STATUS, UNSPECIFIED (2) Fever Code(s): R50.9 - FEVER, UNSPECIFIED (3) Sepsis Code(s): A41.9 - SEPSIS, UNSPECIFIED ORGANISM (4) UTI (urinary tract infection) Code(s): N39.0 - URINARY TRACT INFECTION, SITE NOT SPECIFIED (5) DVT (deep venous thrombosis) Code(s): I82.409 - ACUTE EMBOLISM AND THOMBOS UNSP DEEP VN UNSP LOWER EXTREMITY Qualifiers: DVT location: lower extremity Chronicity: acute Laterality: right Assessment/Plan continue present care abx i/d to follow start on Coumadin. will follow.
[2018-04-04] MEDS ORDERED: MAGNESIUM SULF 50% (8.12 MEQ/2 ML-1 GM VIAL) IVPB ONE (09:40)
[2018-04-04] MEDS: ENOXAPARIN NA (PORCINE) 80 MG/0.8 ML DISP.SYRIN SQ SCH ×2 (09:45→21:29)
[2018-04-04] MEDS: TETRAHYDROZOLINE HCL EYE DROPS OS SCH ×2 (09:48→21:28)
[2018-04-04] MEDS: KETOCONAZOLE 2% CREAM - 60GM TUBE TP SCH ×2 (09:49→21:28)
[2018-04-04] MEDS: PHENYTOIN NA PO SCH ×2 (09:50→21:28)
[2018-04-04] MEDS: POLYETHYLENE GLYCOL 3350 119 GM BTL PO SCH (09:51)
[2018-04-04] MEDS ORDERED: MAGNESIUM SULFATE IN WATER 2 GM/50 ML IVPB IVPB ONE (10:00)
[2018-04-04] MEDS: ACETAMINOPHEN 325 MG TABLET (FP) PO PRN (18:12)
[2018-04-04] MEDS: WARFARIN NA 5 MG TABLET (UD) PO SCH (18:13)
[2018-04-04] MEDS: ATORVASTATIN CA 20 MG TABLET (FP) PO SCH (21:26)
[2018-04-04] MEDS: DUTASTERIDE 0.5 MG CAP (FP) PO SCH (21:26)
[2018-04-04] MEDS: CYCLOBENZAPRINE HCL 10 MG TABLET (FP) PO SCH (21:26)
[2018-04-04] MEDS: ASCORBIC ACID 500 MG TABLET (FP) PO SCH (21:27)
[2018-04-05] MEDS ORDERED: PT OWN MED DRAWER 7, Y5N ONE ×3 (00:56→21:40)
[2018-04-05] MEDS: AMPICILLIN - 2 GM in SODIUM CHLORIDE 100 ML IVPB SCH ×4 (02:52→20:26)
[2018-04-05] MEDS: PHENYTOIN NA EXTENDED 100 MG CAPSULE (FP) PO SCH ×3 (06:29→21:41)
[2018-04-05] MEDS: DOCUSATE SODIUM 100 MG CAPSULE (FP) PO SCH ×3 (06:29→21:41)
[2018-04-05] MEDS: ACETAMINOPHEN 325 MG TABLET (FP) PO PRN ×2 (06:32→21:47)
[2018-04-05] MEDS: CALCIUM 500MG/VIT-D 200 UNITS COMBO TABLET (FP) PO SCH ×2 (08:00→20:25)
[2018-04-05] MEDS: TAMSULOSIN HCL 0.4 MG CAP.ER.24H (FP) PO SCH ×2 (08:30→18:30)
[2018-04-05] MEDS: PHENYTOIN NA PO SCH ×2 (10:00→21:41)
[2018-04-05] MEDS: TETRAHYDROZOLINE HCL EYE DROPS OS SCH ×2 (10:00→21:42)
[2018-04-05] MEDS: POLYETHYLENE GLYCOL 3350 119 GM BTL PO SCH (10:00)
[2018-04-05] MEDS: KETOCONAZOLE 2% CREAM - 60GM TUBE TP SCH ×2 (10:10→21:42)
[2018-04-05] MEDS: ENOXAPARIN NA (PORCINE) 80 MG/0.8 ML DISP.SYRIN SQ SCH ×2 (10:15→21:42)
--- NOTE | 2018-04-05 11:15 | PN ---
Progress Note (short form) - Note Progress Note: pt seen/ examined comfortable denies pain. eating ok temp trending down. Vital Signs Temp 99.1 F 04/05/18 06:00 Pulse 63 04/05/18 06:00 Resp 18 04/05/18 09:00 BP 131/73 04/05/18 06:00 Pulse Ox 94 L 04/05/18 09:00 Intake & Output 04/04/18 04/04/18 04/05/18 11:59 23:59 11:59 Intake Total 500 550 350 Balance 500 550 350 Intake: IVPB 300 200 100 Oral 200 350 250 Other: Voiding Method Diaper Diaper Diaper # Unmeasured Voids Void 2 1 2 Bowel Movement Yes Yes # Bowel Movements 1 2 Active Medications Acetaminophen (Tylenol -) 650 mg PO Q4H PRN PRN Reason: PAIN LEVEL 1-5 Last Admin: 04/05/18 06:32 Dose: 650 mg Ascorbic Acid (Vitamin C -) 500 mg PO [facility] Last Admin: 04/04/18 21:27 Dose: 500 mg Atorvastatin Calcium (Lipitor -) 20 mg PO [facility] Last Admin: 04/04/18 21:26 Dose: 20 mg Calcium Carbonate/Cholecalciferol (Os-Cesar 500+D -) 1 tab PO BID@0800,2000 [facility] Last Admin: 04/04/18 21:27 Dose: 1 tab Cyclobenzaprine HCl (Flexeril -) 5 mg PO [facility] Last Admin: 04/04/18 21:26 Dose: 5 mg Docusate Sodium (Colace -) 100 mg PO TID [facility] Last Admin: 04/05/18 06:29 Dose: 100 mg Dutasteride (Avodart -) 0.5 mg PO [facility] Last Admin: 04/04/18 21:26 Dose: 0.5 mg Enoxaparin Sodium (Lovenox -) 70 mg SQ BID [facility] Last Admin: 04/04/18 21:29 Dose: 70 mg Guaifenesin (Robitussin -) 10 ml PO Q6H PRN PRN Reason: COUGH Ampicillin Sodium 2 gm/ Sodium (Chloride) 100 mls @ 200 mls/hr IVPB Q6H-IV [facility] PRN Reason: Protocol Last Admin: 04/05/18 02:52 Dose: 200 mls/hr Ketoconazole (Nizoral 2% Cream -) 1 applic TP BID [facility] Last Admin: 04/04/18 21:28 Dose: 1 applic Phenytoin Sodium (Dilantin -) 100 mg PO TID [facility] Last Admin: 04/05/18 06:29 Dose: 100 mg Phenytoin Sodium (Dilantin -) 30 mg PO BID [facility] Last Admin: 04/04/18 21:28 Dose: 30 mg Polyethylene Glycol (Miralax (For Daily Use) -) 17 gm PO DAILY [facility] Last Admin: 04/04/18 09:51 Dose: 17 grams Tamsulosin HCl (Flomax -) 0.4 mg PO BID@0830,1830 [facility] Last Admin: 04/04/18 18:12 Dose: 0.4 mg Tetrahydrozoline HCl (Visine -) 2 drop OS BID [facility] Last Admin: 04/04/18 21:28 Dose: 2 drop Warfarin Sodium (Coumadin -) 5 mg PO DAILY@1800 [facility] Last Admin: 04/04/18 18:13 Dose: 5 mg CBC, BMP 04/03/18 07:15 Physical Constitutional: Yes: No Distress. Awake.comfortable. Neck: Yes: Supple/no jvd. Cardiovascular: Yes: Regular Rate and Rhythm Respiratory: Yes: CTA Bilaterally Gastrointestinal: Yes: Soft/ non tender. Edema: no Wound/Incision: Yes: Other (sacral/ left buttock decubitus) Assessment/Plan better Abx eating better decubitus care a/c monitor inr daily oob - chair. physical therapy will follow. Problem List - Problems (1) Altered mental status, unspecified Code(s): R41.82 - ALTERED MENTAL STATUS, UNSPECIFIED (2) Fever Code(s): R50.9 - FEVER, UNSPECIFIED (3) Sepsis Code(s): A41.9 - SEPSIS, UNSPECIFIED ORGANISM (4) UTI (urinary tract infection) Code(s): N39.0 - URINARY TRACT INFECTION, SITE NOT SPECIFIED (5) DVT (deep venous thrombosis) Code(s): I82.409 - ACUTE EMBOLISM AND THOMBOS UNSP DEEP VN UNSP LOWER EXTREMITY Qualifiers: DVT location: lower extremity Chronicity: acute Laterality: right
[2018-04-05 13:06] LABS: INR 1.18 (0.82-1.09); PROTHROMBIN TIME (PATIENT) 13.2 SEC (10.2-13.0)
[2018-04-05] MEDS: WARFARIN NA 5 MG TABLET (UD) PO SCH (18:30)
[2018-04-05] MEDS: ATORVASTATIN CA 20 MG TABLET (FP) PO SCH (21:41)
[2018-04-05] MEDS: ASCORBIC ACID 500 MG TABLET (FP) PO SCH (21:41)
[2018-04-05] MEDS: CYCLOBENZAPRINE HCL 10 MG TABLET (FP) PO SCH (21:41)
[2018-04-05] MEDS: DUTASTERIDE 0.5 MG CAP (FP) PO SCH (21:42)
[2018-04-06] MEDS ORDERED: PT OWN MED DRAWER 7, Y5N ONE ×4 (03:34→21:21)
[2018-04-06] MEDS: AMPICILLIN - 2 GM in SODIUM CHLORIDE 100 ML IVPB SCH ×4 (03:37→21:32)
[2018-04-06] MEDS: PHENYTOIN NA EXTENDED 100 MG CAPSULE (FP) PO SCH ×3 (06:41→21:32)
[2018-04-06] MEDS: DOCUSATE SODIUM 100 MG CAPSULE (FP) PO SCH ×3 (06:41→21:32)
[2018-04-06] MEDS: CALCIUM 500MG/VIT-D 200 UNITS COMBO TABLET (FP) PO SCH ×2 (08:05→19:58)
[2018-04-06] MEDS: TAMSULOSIN HCL 0.4 MG CAP.ER.24H (FP) PO SCH ×2 (08:28→17:41)
[2018-04-06 09:14] LABS: BASO % 0.5 % (0-2.0); EOS % 0.6 % (0-4.5); HEMATOCRIT 33.9 % (35.4-49); HEMOGLOBIN 11.5 GM/dl (11.7-16.9); LYMPH % 16.9 % (8-40); MCH 34.5 pg (25.7-33.7); MCHC 33.9 g/dl (32.0-35.9); MEAN CELL VOLUME 101.7 fl (80-96); MEAN PLT VOLUME 8.4 fl (7.5-11.1); MONO % 11.3 % (3.8-10.2); NEUT % 70.7 % (42.8-82.8); PLATELET COUNT 344 K/MM3 (134-434); RBC 3.34 M/mm3 (4.00-5.60)
[2018-04-06 09:37] LABS: ALBUMIN 1.8 g/dl (3.5-5.0); ALK PHOS 83 U/L (32-92); ANION GAP 7 (8-16); BLOOD UREA NITROGEN 17 mg/dl (7-18); CALCIUM 7.9 mg/dl (8.4-10.2); CHLORIDE 103 mmol/L (98-107); CO2 27 mmol/L (22-28); GLUCOSE,RANDOM 118 mg/dl (74-106); MAGNESIUM 1.8 mg/dL (1.8-2.4); POTASSIUM 4.5 mmol/L (3.5-5.1); SGOT/AST 37 U/L (10-42); SGPT/ALT 40 U/L (10-40); SODIUM 137 mmol/L (136-145); TOT PROT 5.8 g/dl (6.4-8.3)
[2018-04-06] MEDS: PHENYTOIN NA PO SCH ×2 (10:00→21:33)
[2018-04-06] MEDS: ENOXAPARIN NA (PORCINE) 80 MG/0.8 ML DISP.SYRIN SQ SCH ×3 (10:00→22:21)
[2018-04-06 10:05] LABS: BILIRUBIN,TOTAL 0.5 mg/dl (0.2-1.0)
[2018-04-06] MEDS: POLYETHYLENE GLYCOL 3350 119 GM BTL PO SCH (10:06)
[2018-04-06] MEDS: TETRAHYDROZOLINE HCL EYE DROPS OS SCH ×2 (10:10→21:33)
[2018-04-06] MEDS: KETOCONAZOLE 2% CREAM - 60GM TUBE TP SCH ×2 (10:10→21:33)
[2018-04-06 10:29] LABS: INR 1.23 (0.82-1.09); PROTHROMBIN TIME (PATIENT) 13.7 SEC (10.2-13.0)
[2018-04-06 11:30] LABS: ERYTHROCYTE SEDIMENTATION RATE > 140 mm/hr (0-20)
--- NOTE | 2018-04-06 15:04 | PN ---
Progress Note (short form) - Note Progress Note: pt seen/ examined no distress much better afebrile denies pain. eating ok Mother at bedside Vital Signs Temp 98.4 F 04/06/18 14:00 Pulse 79 04/06/18 14:00 Resp 19 04/06/18 14:00 BP 125/61 04/06/18 14:00 Pulse Ox 97 04/06/18 14:59 Intake & Output 04/05/18 04/06/18 04/06/18 23:59 11:59 23:59 Intake Total 250 Balance 250 Intake: Oral 250 Other: Voiding Method Diaper Diaper # Unmeasured Voids Void 1 Bowel Movement Yes # Bowel Movements 1 Active Medications Acetaminophen (Tylenol -) 650 mg PO Q4H PRN PRN Reason: PAIN LEVEL 1-5 Last Admin: 04/05/18 21:47 Dose: 650 mg Ascorbic Acid (Vitamin C -) 500 mg PO [facility] Last Admin: 04/05/18 21:41 Dose: 500 mg Atorvastatin Calcium (Lipitor -) 20 mg PO [facility] Last Admin: 04/05/18 21:41 Dose: 20 mg Calcium Carbonate/Cholecalciferol (Os-Cesar 500+D -) 1 tab PO BID@0800,2000 [facility] Last Admin: 04/05/18 20:25 Dose: 1 tab Cyclobenzaprine HCl (Flexeril -) 5 mg PO [facility] Last Admin: 04/05/18 21:41 Dose: 5 mg Docusate Sodium (Colace -) 100 mg PO TID [facility] Last Admin: 04/06/18 06:41 Dose: 100 mg Dutasteride (Avodart -) 0.5 mg PO [facility] Last Admin: 04/05/18 21:42 Dose: 0.5 mg Enoxaparin Sodium (Lovenox -) 70 mg SQ BID [facility] Last Admin: 04/05/18 21:42 Dose: 70 mg Guaifenesin (Robitussin -) 10 ml PO Q6H PRN PRN Reason: COUGH Ampicillin Sodium 2 gm/ Sodium (Chloride) 100 mls @ 200 mls/hr IVPB Q6H-IV [facility] PRN Reason: Protocol Last Admin: 04/06/18 03:37 Dose: 200 mls/hr Ketoconazole (Nizoral 2% Cream -) 1 applic TP BID [facility] Last Admin: 04/05/18 21:42 Dose: 1 applic Phenytoin Sodium (Dilantin -) 100 mg PO TID [facility] Last Admin: 04/06/18 06:41 Dose: 100 mg Phenytoin Sodium (Dilantin -) 30 mg PO BID [facility] Last Admin: 04/05/18 21:41 Dose: 30 mg Polyethylene Glycol (Miralax (For Daily Use) -) 17 gm PO DAILY [facility] Last Admin: 04/05/18 10:00 Dose: 17 grams Tamsulosin HCl (Flomax -) 0.4 mg PO BID@0830,1830 [facility] Last Admin: 04/05/18 18:30 Dose: 0.4 mg Tetrahydrozoline HCl (Visine -) 2 drop OS BID [facility] Last Admin: 04/05/18 21:42 Dose: 2 drop Warfarin Sodium (Coumadin -) 5 mg PO DAILY@1800 [facility] Last Admin: 04/05/18 18:30 Dose: 5 mg INR, PTT INR 1.23 (0.82-1.09) H 04/06/18 10:03 CBC,CMP WBC 8.0 K/mm3 (4.0-10.8) 04/06/18 08:00 RBC 3.34 M/mm3 (4.00-5.60) L 04/06/18 08:00 Hgb 11.5 GM/dl (11.7-16.9) L 04/06/18 08:00 Hct 33.9 % (35.4-49) L 04/06/18 08:00 MCV 101.7 fl (80-96) H 04/06/18 08:00 MCH 34.5 pg (25.7-33.7) H 04/06/18 08:00 MCHC 33.9 g/dl (32.0-35.9) 04/06/18 08:00 RDW 13.0 % (11.9-15.9) 04/06/18 08:00 Plt Count 344 K/MM3 (134-434) 04/06/18 08:00 MPV 8.4 fl (7.5-11.1) D 04/06/18 08:00 Neutrophils % 70.7 % (42.8-82.8) 04/06/18 08:00 Lymphocytes % 16.9 % (8-40) D 04/06/18 08:00 Monocytes % 11.3 % (3.8-10.2) H 04/06/18 08:00 Eosinophils % 0.6 % (0-4.5) 04/06/18 08:00 Basophils % 0.5 % (0-2.0) 04/06/18 08:00 ESR > 140 mm/hr (0-20) H 04/06/18 08:00 Sodium 137 mmol/L (136-145) 04/06/18 08:00 Potassium 4.5 mmol/L (3.5-5.1) 04/06/18 08:00 Chloride 103 mmol/L (98-107) 04/06/18 08:00 Carbon Dioxide 27 mmol/L (22-28) 04/06/18 08:00 Anion Gap 7 (8-16) L 04/06/18 08:00 BUN 17 mg/dl (7-18) D 04/06/18 08:00 Creatinine 1.0 mg/dl (0.6-1.3) 04/06/18 08:00 Creat Clearance w eGFR > 60 (>60) 04/06/18 08:00 Random Glucose 118 mg/dl (74-106) H D 04/06/18 08:00 Lactic Acid 1.2 mmol/L (0.0-2.0) 03/27/18 14:15 Calcium 7.9 mg/dl (8.4-10.2) L 04/06/18 08:00 Phosphorus 2.6 mg/dl (2.5-4.6) 03/28/18 13:05 Magnesium 1.8 mg/dL (1.8-2.4) 04/06/18 08:00 Total Bilirubin 0.5 mg/dl (0.2-1.0) D 04/06/18 08:00 AST 37 U/L (10-42) 04/06/18 08:00 ALT 40 U/L (10-40) 04/06/18 08:00 Alkaline Phosphatase 83 U/L (32-92) 04/06/18 08:00 C-Reactive Protein 18.1 MG/DL (0.00-0.3) H 03/29/18 08:05 Total Protein 5.8 g/dl (6.4-8.3) L 04/06/18 08:00 Albumin 1.8 g/dl (3.5-5.0) L 04/06/18 08:00 Prostate Specific Ag < 0.10 ng/ml (0.0-4.0) 03/29/18 08:05 Physical. Constitutional: Yes: No Distress. Awake. comfortable. Neck: Yes: Supple/no jvd. Cardiovascular: Yes: Regular Rate and Rhythm Respiratory: Yes: CTA Bilaterally. Gastrointestinal: Yes: Soft/ non tender. bs + Edema: no . Assessment/Plan Overall looks better Abx eating better coumadin per inr esr remains persistently high daily oob - chair. physical therapy. may need str-- discussed with mother will follow. Problem List - Problems (1) Altered mental status, unspecified Code(s): R41.82 - ALTERED MENTAL STATUS, UNSPECIFIED (2) Fever Code(s): R50.9 - FEVER, UNSPECIFIED (3) Sepsis Code(s): A41.9 - SEPSIS, UNSPECIFIED ORGANISM (4) UTI (urinary tract infection) Code(s): N39.0 - URINARY TRACT INFECTION, SITE NOT SPECIFIED (5) DVT (deep venous thrombosis) Code(s): I82.409 - ACUTE EMBOLISM AND THOMBOS UNSP DEEP VN UNSP LOWER EXTREMITY Qualifiers: DVT location: lower extremity Chronicity: acute Laterality: right
[2018-04-06] MEDS: WARFARIN NA 5 MG TABLET (UD) PO SCH (17:27)
[2018-04-06] MEDS: ACETAMINOPHEN 325 MG TABLET (FP) PO PRN (19:58)
[2018-04-06] MEDS: ASCORBIC ACID 500 MG TABLET (FP) PO SCH (21:32)
[2018-04-06] MEDS: ATORVASTATIN CA 20 MG TABLET (FP) PO SCH (21:32)
[2018-04-06] MEDS: DUTASTERIDE 0.5 MG CAP (FP) PO SCH (21:32)
[2018-04-06] MEDS: CYCLOBENZAPRINE HCL 10 MG TABLET (FP) PO SCH (21:33)
[2018-04-07] MEDS: AMPICILLIN - 2 GM in SODIUM CHLORIDE 100 ML IVPB SCH ×4 (03:16→23:26)
[2018-04-07] MEDS: PHENYTOIN NA EXTENDED 100 MG CAPSULE (FP) PO SCH ×3 (06:09→23:22)
[2018-04-07] MEDS: DOCUSATE SODIUM 100 MG CAPSULE (FP) PO SCH ×3 (06:09→23:22)
[2018-04-07] MEDS: TAMSULOSIN HCL 0.4 MG CAP.ER.24H (FP) PO SCH ×2 (08:17→18:09)
[2018-04-07] MEDS: CALCIUM 500MG/VIT-D 200 UNITS COMBO TABLET (FP) PO SCH ×2 (08:17→23:22)
[2018-04-07 09:07] LABS: INR 1.48 (0.82-1.09); PROTHROMBIN TIME (PATIENT) 16.4 SEC (10.2-13.0)
[2018-04-07] MEDS: ENOXAPARIN NA (PORCINE) 80 MG/0.8 ML DISP.SYRIN SQ SCH (09:36)
[2018-04-07] MEDS: KETOCONAZOLE 2% CREAM - 60GM TUBE TP SCH ×2 (09:39→23:26)
[2018-04-07] MEDS: TETRAHYDROZOLINE HCL EYE DROPS OS SCH ×2 (09:39→23:26)
[2018-04-07] MEDS: PHENYTOIN NA PO SCH ×2 (09:39→21:36)
[2018-04-07] MEDS: POLYETHYLENE GLYCOL 3350 119 GM BTL PO SCH (09:39)
[2018-04-07] MEDS ORDERED: SENNOSIDES 8.6MG TABLET (FP) PO PRN (10:09)
--- NOTE | 2018-04-07 10:14 | PN ---
Progress Note, Physician History of Present Illness: comfortable no complains nurse reports still constipated although has bm. afebrile now persistent esr -- elevated - Current Medication List Current Medications: Active Medications Acetaminophen (Tylenol -) 650 mg PO Q4H PRN PRN Reason: PAIN LEVEL 1-5 Last Admin: 04/06/18 19:58 Dose: 650 mg Ascorbic Acid (Vitamin C -) 500 mg PO [facility] Last Admin: 04/06/18 21:32 Dose: 500 mg Atorvastatin Calcium (Lipitor -) 20 mg PO [facility] Last Admin: 04/06/18 21:32 Dose: 20 mg Calcium Carbonate/Cholecalciferol (Os-Cesar 500+D -) 1 tab PO BID@0800,2000 [facility] Last Admin: 04/07/18 08:17 Dose: 1 tab Cyclobenzaprine HCl (Flexeril -) 5 mg PO [facility] Last Admin: 04/06/18 21:33 Dose: 5 mg Docusate Sodium (Colace -) 100 mg PO TID [facility] Last Admin: 04/07/18 06:09 Dose: 100 mg Dutasteride (Avodart -) 0.5 mg PO [facility] Last Admin: 04/06/18 21:32 Dose: 0.5 mg Enoxaparin Sodium (Lovenox -) 70 mg SQ BID [facility] Last Admin: 04/07/18 09:36 Dose: 70 mg Guaifenesin (Robitussin -) 10 ml PO Q6H PRN PRN Reason: COUGH Ampicillin Sodium 2 gm/ Sodium (Chloride) 100 mls @ 200 mls/hr IVPB Q6H-IV [facility] PRN Reason: Protocol Last Admin: 04/07/18 08:17 Dose: 200 mls/hr Ketoconazole (Nizoral 2% Cream -) 1 applic TP BID [facility] Last Admin: 04/07/18 09:39 Dose: 1 applic Phenytoin Sodium (Dilantin -) 100 mg PO TID [facility] Last Admin: 04/07/18 06:09 Dose: 100 mg Phenytoin Sodium (Dilantin -) 30 mg PO BID [facility] Last Admin: 04/07/18 09:39 Dose: 30 mg Polyethylene Glycol (Miralax (For Daily Use) -) 17 gm PO DAILY [facility] Last Admin: 04/07/18 09:39 Dose: 17 grams Senna (Senna -) 2 tab PO HS PRN PRN Reason: CONSTIPATION Tamsulosin HCl (Flomax -) 0.4 mg PO BID@0830,1830 [facility] Last Admin: 04/07/18 08:17 Dose: 0.4 mg Tetrahydrozoline HCl (Visine -) 2 drop OS BID [facility] Last Admin: 04/07/18 09:39 Dose: 2 drop Warfarin Sodium (Coumadin -) 5 mg PO DAILY@1800 [facility] Last Admin: 04/06/18 17:27 Dose: 5 mg Warfarin Sodium (Coumadin -) 2.5 mg PO ONCE@1800 [facility] Stop: 04/07/18 18:01 - Objective Vital Signs: Vital Signs Temperature 99.2 F 04/07/18 09:20 Pulse Rate 70 04/07/18 09:20 Respiratory Rate 18 04/07/18 09:20 Blood Pressure 115/64 04/07/18 09:20 O2 Sat by Pulse Oximetry (%) 97 04/07/18 09:00 Constitutional: Yes: No Distress, Calm Eyes: Yes: Conjunctiva Clear Neck: Yes: Supple Cardiovascular: Yes: Regular Rate and Rhythm Respiratory: Yes: CTA Bilaterally Gastrointestinal: Yes: Soft Edema: No Neurological: Yes: Alert Labs: CBC, BMP 04/06/18 08:00 04/06/18 08:00 INR, PTT INR 1.48 (0.82-1.09) H 04/07/18 07:30 Problem List - Problems (1) Altered mental status, unspecified Code(s): R41.82 - ALTERED MENTAL STATUS, UNSPECIFIED (2) Fever Code(s): R50.9 - FEVER, UNSPECIFIED (3) Sepsis Code(s): A41.9 - SEPSIS, UNSPECIFIED ORGANISM (4) UTI (urinary tract infection) Code(s): N39.0 - URINARY TRACT INFECTION, SITE NOT SPECIFIED (5) DVT (deep venous thrombosis) Code(s): I82.409 - ACUTE EMBOLISM AND THOMBOS UNSP DEEP VN UNSP LOWER EXTREMITY Qualifiers: DVT location: lower extremity Chronicity: acute Laterality: right Assessment/Plan Clinically much better Continue present care extra coumadin today add senna i/d to follow daily oob - chair Physical therapy will follow discussed with nursing staff also
[2018-04-07] MEDS ORDERED: WARFARIN NA 2.5 MG TABLET (FP) PO ONE (18:00)
[2018-04-07] MEDS: WARFARIN NA 5 MG TABLET (UD) PO SCH (18:09)
[2018-04-07] MEDS: DUTASTERIDE 0.5 MG CAP (FP) PO SCH (23:21)
[2018-04-07] MEDS: ASCORBIC ACID 500 MG TABLET (FP) PO SCH (23:22)
[2018-04-07] MEDS: CYCLOBENZAPRINE HCL 10 MG TABLET (FP) PO SCH (23:22)
[2018-04-07] MEDS: ATORVASTATIN CA 20 MG TABLET (FP) PO SCH (23:22)
[2018-04-07] MEDS ORDERED: PT OWN MED DRAWER 7, Y5N ONE (23:28)
[2018-04-08] MEDS ORDERED: PT OWN MED DRAWER 7, Y5N ONE ×3 (03:46→09:20)
[2018-04-08] MEDS: AMPICILLIN - 2 GM in SODIUM CHLORIDE 100 ML IVPB SCH ×3 (03:48→15:20)
[2018-04-08] MEDS: PHENYTOIN NA EXTENDED 100 MG CAPSULE (FP) PO SCH ×2 (06:36→14:45)
[2018-04-08] MEDS: DOCUSATE SODIUM 100 MG CAPSULE (FP) PO SCH ×2 (06:36→14:10)
[2018-04-08 08:00] LABS: INR 1.91 (0.82-1.09); PROTHROMBIN TIME (PATIENT) 21.1 SEC (10.2-13.0)
[2018-04-08 08:06] LABS: HEMATOCRIT 31.9 % (35.4-49); HEMOGLOBIN 10.8 GM/dl (11.7-16.9); MCH 34.1 pg (25.7-33.7); MCHC 33.9 g/dl (32.0-35.9); MEAN CELL VOLUME 100.4 fl (80-96); MEAN PLT VOLUME 7.9 fl (7.5-11.1); PLATELET COUNT 385 K/MM3 (134-434); RBC 3.18 M/mm3 (4.00-5.60); RDW 13.1 % (11.9-15.9); WHITE BLOOD COUNT 6.3 K/mm3 (4.0-10.8)
[2018-04-08] MEDS: CALCIUM 500MG/VIT-D 200 UNITS COMBO TABLET (FP) PO SCH (08:09)
[2018-04-08] MEDS: TAMSULOSIN HCL 0.4 MG CAP.ER.24H (FP) PO SCH (08:10)
--- NOTE | 2018-04-08 08:35 | DS ---
Physical Examination Vital Signs: Vital Signs Temperature 97.9 F 04/08/18 06:00 Pulse Rate 79 04/08/18 06:00 Respiratory Rate 18 04/08/18 06:00 Blood Pressure 134/86 04/08/18 06:00 O2 Sat by Pulse Oximetry (%) 95 04/08/18 07:50 Findings/Remarks: feels good eating good having bms back to baseline but need assistance in moving Constitutional: Yes: No Distress, Calm Eyes: Yes: Conjunctiva Clear Neck: Yes: Supple Cardiovascular: Yes: Regular Rate and Rhythm Respiratory: Yes: CTA Bilaterally Gastrointestinal: Yes: Normal Bowel Sounds, Soft Edema: No Neurological: Yes: Alert Labs: CBC, BMP 04/08/18 07:20 Discharge Summary Reason For Visit: UTI, SEPSIS Current Active Problems Altered mental status, unspecified (Acute) DVT (deep venous thrombosis) (Acute) Fever (Acute) Renal cyst (Acute) Sepsis (Acute) UTI (urinary tract infection) (Acute) Hospital Course: Admitted for fever found to have uti. treated with abx continue to have fever u/s showed extensive dvt started on lovenox and coumadin hematology/ vascular consults taken. i/d followed much better now but deconditioned, should benefit from str Discussed with visual manager / nursing staff today will discharge on lovenox and coumadin-- continue lovenox till inr is therapeutic will d/c off abx meds reconcilled Anticipate d/c today Condition: Stable - Instructions Referrals: Reid Orosco MD [Primary Care Provider] - [facility] - Home Medications Comprehensive Discharge Medication List: Ambulatory Orders Acetaminophen 325 mg PO QID PRN 03/27/18 Ascorbic Acid [C-500] 500 mg PO HS 03/27/18 Atorvastatin Ca [Lipitor] 20 mg PO HS 03/27/18 Calcium Carbonate/Vitamin D3 [Oyster Shell 500-Vit D3 200 Tb] 1 each PO BID Cyclobenzaprine HCl 5 mg PO HS 03/27/18 Dutasteride 0.5 mg PO HS 03/27/18 Emollient Combination No.71 [Lubriderm Advanced Therapy] 1 TP BID 03/27/18 Ketoconazole 2% Cream [Nizoral 2% Cream -] 1 applic TP BID 03/27/18 Mineral Oil 2 drop AU HS 03/27/18 Phenytoin Na Extended [Dilantin -] 30 mg PO BID 03/27/18 Phenytoin Na Extended [Dilantin -] 100 mg PO TID 03/27/18 Phisoderm 03/27/18 Tamsulosin HCl [Flomax] 0.4 mg PO BID 03/27/18 Tetrahydrozoline HCl [Visine] 2 drop OS BID 03/27/18 Atorvastatin Ca [Lipitor] 20 mg PO HS tablet 04/08/18 Docusate Sodium [Colace -] 100 mg PO TID 30 Days #90 capsule 04/08/18 Enoxaparin [Lovenox -] 70 mg SQ BID #10 disp.syrin 04/08/18 Polyethylene Glycol 3350 [Miralax 119 gm Btl -] 17 gm PO DAILY #30 bottle Sennosides [Senna -] 2 tab PO HS PRN 30 Days #60 tablet 04/08/18 Warfarin Na [Coumadin -] 5 mg PO DAILY@1800 #30 tablet 04/08/18
[2018-04-08] MEDS: PHENYTOIN NA PO SCH (09:24)
[2018-04-08] MEDS: ENOXAPARIN NA (PORCINE) 80 MG/0.8 ML DISP.SYRIN SQ SCH (09:24)
[2018-04-08] MEDS: TETRAHYDROZOLINE HCL EYE DROPS OS SCH (09:42)
[2018-04-08] MEDS: KETOCONAZOLE 2% CREAM - 60GM TUBE TP SCH (09:42)
[2018-04-08] MEDS: POLYETHYLENE GLYCOL 3350 119 GM BTL PO SCH (09:42)
[2018-04-08 09:47] LABS: ERYTHROCYTE SEDIMENTATION RATE > 140 mm/hr (0-20)
[2018-04-08 09:50] LABS: PLATELET ESTIMATE ADEQUATE
[2018-04-08 10:32] LABS: ALBUMIN 1.9 g/dl (3.5-5.0); ALK PHOS 86 U/L (32-92); ANION GAP 6 (8-16); BILIRUBIN,TOTAL 0.3 mg/dl (0.2-1.0); BLOOD UREA NITROGEN 13 mg/dl (7-18); CALCIUM 7.7 mg/dl (8.4-10.2); CHLORIDE 103 mmol/L (98-107); CO2 25 mmol/L (22-28); CREATININE 1.1 mg/dl (0.6-1.3); GLUCOSE,RANDOM 147 mg/dl (74-106); POTASSIUM 3.8 mmol/L (3.5-5.1); SGOT/AST 35 U/L (10-42); SGPT/ALT 44 U/L (10-40); SODIUM 134 mmol/L (136-145)
[2018-04-08 14:10] VITALS: BP 106/52; PULSE 77; TEMP 98.4
== END 2018-04-08 15:48 | DRG 720 ==
LOC: FER 13:25 → FM/S 18:13
PROVIDERS: ADMIT Hospitalist; ATTEND Internal Medicine
DX: A41.9 Sepsis, unspecified organism (principal); N39.0 Urinary tract infection, site not specified; I82.411 Acute embolism and thrombosis of right femoral vein; R41.82 Altered mental status, unspecified; N28.1 Cyst of kidney, acquired; R33.9 Retention of urine, unspecified; Q90.9 Down syndrome, unspecified; R62.7 Adult failure to thrive; K59.00 Constipation, unspecified; L89.322 Pressure ulcer of left buttock, stage 2; L89.152 Pressure ulcer of sacral region, stage 2
CPT/HCPCS: 36415; 70450-TC; 71045-TC-FY; 74178-TC; 76775-TC; 76856-TC; 80053; 80185; 81003; 81015; 83605; 83735; 84100; 84153; 85025; 85610; 85651; 86038; 86140; 87040; 87076; 87086; 87186; 93005; 93970-TC; 97116-GP; 97161-GP; 99284-25; J0131; J1644; J7030